=== PATIENT | female | born 1970 | race Caucasian/White ===

== ENCOUNTER 2025-05-17 18:53 | Inpatient (IN) | payer SELFPAY ==
[2025-05-17] VITALS (42 sets, daily range): BP systolic 111–148; BP diastolic 68–93; PULSE 56–90; RESP 12–20; TEMP 36.7–37.1; O2SAT 94–99
--- NOTE | 2025-05-17 18:58 | W.ED.GENAD ---
Discharge Plan Disposition Patient Disposition: Admit to [facility] Condition: Stable Discharge Details Clinical Impression: Alcohol withdrawal ED Provider: Gabo Almanzar Home Meds and New Rx's Prescriptions: No Action No Known Home Meds HPI General Date/Time Provider Initiated Documentation: 05/17/25 18:58. HPI Narrative: 54 year-old female presents to ED today by EMS with a chief complaint of alcohol withdrawal, black stools, tremors with onset after her last drink this morning around 1000. Patient endorses history of alcohol withdrawal seizures, drinks 40+ tall natty daddy's per day. Quality described as exquisite abdominal pain, shaking, nausea, black stools, feels weak, no radiation to falls or trauma, fever, cough, chest heaviness, visual changes. Severity is described as severe. Palliating factors include nothing attempted yet. Provoking factors include nothing specific. Events leading up to the incident/Associated Symptoms: Patient has had prior admissions for ETOH withdrawal. Patient not anticoagulated. Related Data Home Medications Medication Instructions Recorded Confirmed Unknown [No Known Home Meds] 05/17/25 05/17/25 Allergies Allergy/AdvReac Type Severity Reaction Status Date / Time No Known Allergies Allergy Unverified 05/17/25 18:57 General Stated Complaint: ETOHWithdr AYSE: 3 Review of Systems All systems reviewed & are unremarkable except as noted in HPI and below Exam Narrative Exam Narrative: GENERAL APPEARANCE: Cachectic, non-toxic, awake and alert, atraumatic, no acute distress. SKIN: Warm, pale, dry, intact, without rashes/lesions/ulcerations. HEAD: Normocephalic, atraumatic, normal hair distribution for gender/age. EYES: Normal conjunctiva, no exudates on lids/lashes. ENT: Nares patent, no circumoral cyanosis, no facial swelling NECK: Supple, trachea midline, painless cervical ROM. LUNGS/CHEST: Lungs CTA bilaterally- no rhonchi/rales/wheezes diffusely, non-labored respirations, normal A/P diameter, symmetrical expansion, no chest wall deformity HEART (CV/PV): Regular rate and rhythm without murmur, no peripheral edema, no JVD. ABDOMEN: Soft, non-distended, no guarding, exquisite epigastric tenderness. MSK: Normal ROM, no swelling/deformity to bilateral UEs or LEs, moving all extremities without weakness, no cyanosis, spine midline without tenderness, normal curvature. NEURO: Mental Status AAOx4 - alert to person, place, time, events No facial droop, no forehead involvement. Motor: No focal weakness - has tremor persistently on arrival, asterixis, tongue fasciculations Sensory: sensation intact to light touch globally. Gait NT. PSYCH: dysthymic, cooperative, pleasant, appropriate speech Course Vital Signs Vital signs: Vital Signs Temperature 36.7 C 05/17/25 18:49 Pulse 69 05/17/25 18:49 Respiratory Rate 18 05/17/25 18:49 Pulse Oximetry 97 05/17/25 18:49 Temperature 36.7 C 05/17/25 18:49 Temperature Source Oral 05/17/25 18:49 Pulse 69 05/17/25 18:49 Respiratory Rate 18 05/17/25 18:49 Pulse Oximetry 97 05/17/25 18:49 Pain Level 7 05/17/25 18:49 Medical Decision Making This dictation utilizes [id number] dictation software and may contain unedited grammatical errors. 54 year-old female presents to ED today by EMS with a chief complaint of alcohol withdrawal, black stools, tremors with onset after her last drink this morning around 1000. Patient endorses history of alcohol withdrawal seizures, drinks 40+ tall natty daddy's per day. Quality described as exquisite abdominal pain, shaking, nausea, black stools, feels weak, no radiation to falls or trauma, fever, cough, chest heaviness, visual changes. Severity is described as severe. Palliating factors include nothing attempted yet. Provoking factors include nothing specific. Events leading up to the incident/Associated Symptoms: Patient has had prior admissions for ETOH withdrawal. Patients' medical history: [ ]. Family and social history: severe alcohol use disorder, 40+ high precentage tall cans of beer per day, denies other drug use, endorses regular tobacco use. Pertinent exam findings / vital signs include severe tremor, tongue fasciculations, exquisite epigastric tenderness, lungs CTA, EOMs intact without nystagmus. Differential / pathologies of concern include pancreatitis, biliary colic, GI bleeding, severe alcohol withdrawal. Diagnostic studies of: - CBC, BMP, liver panel, lipase, magnesium, troponin, TSH, alcohol level, UA, UDS, ammonia level, alcohol level. - CBC shows leukopenia 2.48, no left shift - Lactate 1.1 - BMP is fairly unremarkable with mildly low calcium - Magnesium within normal limits - LFTs only show mild elevation of AST at 51 - Lipase within normal limits - TSH WNL - Alcohol level 10.1 - Troponin negative - UA small leukocyte esterase, micro only 3-5 WBCs no Cx indicated - UDS negative - Ammonia level within normal limits - CTA of the abdomen pelvis shows no acute pathology in ABD/pelvis - CIWA initial score: 9 - patient likely to become quite severe Interventions of: -2mg Ativan q2hr PRN, IVF Banana Bag, Phenobarbitol drip. -Consult with hospitalist Dr. Adams - admit for ETOH withdrawal plan on lower dose phenobarbital drip at 2133. ED Course/Assessment/Plan: 54-year-old female presents shaking and alcohol withdrawal last drink at 10 AM this morning with an alcohol level 10.1 states he drinks 40 tall beers per day sometimes and had a few today. Her labs show no anemia in regards to her black stools and CTA of her abdomen and pelvis showed no GI hemorrhage, troponins negative, LFTs only mild elevation of AST at 51, her initial CIWA was 9 but patient has history of alcohol induced withdrawal seizures, admitted for observation by Dr. Adams with phenobarbital drip for seizure prevention. Disposition of Alcohol Withdrawal. Patient verbalized understanding of the plan and return to ED criteria and engaged in shared decision making. Medical Records Medical records reviewed: Yes I reviewed the patient's medical records. Imaging Data Radiologic Study: Attestation: I personally reviewed and interpreted this imaging study as follows: Imaging: CT Scan Radiologist's impression: Exam: CTA Abdomen and Pelvis With Contrast Exam date and time: 05/17/2025 8:35 PM Age: 54 years old Clinical indication: Other: ? Gi bleeding TECHNIQUE: Imaging protocol: Computed tomographic angiography of the abdomen and pelvis with contrast. Exam focused on the arteries. 3D rendering (Not supervised by radiologist): MIP and/or 3D reconstructed images were created by the technologist. Contrast material: OMNIPAQUE 350; Contrast volume: 65 ml; Contrast route: INTRAVENOUS (IV); COMPARISON: No relevant prior studies available. FINDINGS: Lungs: Small calcified right lung base granuloma. Aorta: No aortic aneurysm. No aortic dissection. Celiac and mesenteric arteries: No occlusion or significant stenosis. Renal arteries: No occlusion or significant stenosis. Right iliac arteries: No occlusion or significant stenosis. Left iliac arteries: No occlusion or significant stenosis. Liver: No mass. Gallbladder and biliary ducts: Status post cholecystectomy. Pancreas: Unremarkable. No mass. No ductal dilation. Spleen: Unremarkable. No splenomegaly. Adrenal glands: Unremarkable. No mass. Kidneys and ureters: Unremarkable. No solid mass. No hydronephrosis. Stomach and bowel: Status post gastric bypass surgery. Appendix: No evidence of appendicitis. Intraperitoneal space: Unremarkable. No free air. No significant fluid collection. Lymph nodes: Unremarkable. No enlarged lymph nodes. Urinary bladder: Unremarkable. No mass. Reproductive: Unremarkable as visualized. Bones/joints: Old right rib fracture. Soft tissues: Unremarkable. IMPRESSION: No evidence for GI hemorrhage. No acute abnormality noted. Dictated and Authenticated by: Shelley Menezes MD. Lab Data Lab results reviewed: Yes I reviewed the patient's lab results. Labs: Laboratory Tests Range/Units 05/17/25 05/17/25 05/17/25 19:04 19:22 19:22 WBC (4.4-10.8) 10^3/uL 2.48 L RBC (3.93-5.22) 10^6/uL 3.82 L Hgb (11.2-15.7) g/dL 11.5 Hct (36.0-46.0) % 34.2 L MCV (80-95) fL 90 MCH (27.0-33.0) pg 30.1 MCHC (32.0-36.0) % 33.6 RDW (11.7-14.6) % 14.1 Plt Count (130-400) 10^3/uL 137 MPV (8.0-11.0) fL 8.9 Immature Gran % % 0.4 Neutrophils % % 55.2 Lymphocytes % % 33.5 Monocytes % % 8.9 Eosinophils % % 1.2 Basophils % % 0.8 Nucleated RBC % (0.0-0.3) % 0.0 Absolute Neutrophils (1.2-6.7) 10^3/uL 1.37 Absolute Lymphocytes (1.2-3.4) 10^3/uL 0.83 L Absolute Monocytes (0.1-0.8) 10^3/uL 0.22 Absolute Eosinophils (0.0-0.7) 10^3/uL 0.03 Absolute Basophils (0.0-0.2) 10^3/uL 0.02 VBG Lactate (<or=2.0) mmol/L 1.1 Sodium (136-145) mmol/L 143 Cancelled Potassium (3.5-5.1) mmol/L 4.2 Chloride (98-107) mmol/L Carbon Dioxide (21.0-32.0) mmol/L Anion Gap (3-11) mmol/L BUN (7-18) mg/dL Creatinine (0.55-1.02) mg/dL Est GFR (CKD-EPI 2020) (mL/min/1.73m2) Glucose (74-106) mg/dL Calcium (8.5-10.1) mg/dL Magnesium (1.8-2.4) mg/dL Total Bilirubin (0.2-1.0) mg/dL Conjugated Bilirubin (0.0-0.2) mg/dL AST (15-37) U/L ALT (14-59) U/L Alkaline Phosphatase (46-116) U/L Ammonia (11-32) umol/L Troponin I (<or=51) ng/L Total Protein (6.4-8.2) g/dL Albumin (3.4-5.0) g/dL Lipase (<78) U/L TSH (0.36-3.74) uIU/mL Urine Color (Yellow) Yellow Urine Clarity (Clear) Clear Urine pH (5-8) 5.5 Ur Specific [place] (1.005-1.025) 1.025 Urine Protein (Neg-Trace) mg/dL Negative Urine Ketones (Negative) mg/dL Negative Urine Blood (Negative) Negative Urine Nitrite (Negative) Negative Urine Bilirubin (Negative) Negative Urine Urobilinogen (Up to 0.2) mg/dL 0.2 Ur Leukocyte Esterase (Negative) Small H Urine RBC (0-2) HPF 0-2 Urine WBC (0-5) HPF 3-5 Ur Epithelial Cells (Negative) HPF Rare Urine Crystals (Negative) HPF Negative Urine Bacteria (Negative) HPF Negative Urine Mucus (Negative) Trace Ur Culture Indicated? No Urine Glucose (Negative) mg/dL Negative Urine Opiates Screen (Negative) Negative Urine Methadone Screen (Negative) Negative Ur Barbiturates Screen (Negative) Negative Ur Tricyclics Screen (Negative) Negative Ur Amphetamines Screen (Negative) Negative U Benzodiazepines Scrn (Negative) Negative Urine Cocaine Screen (Negative) Negative Ur THC Screen (Negative) Negative Ethyl Alcohol (<10) mg/dL Range/Units 05/17/25 05/17/25 05/17/25 19:22 19:22 19:22 WBC (4.4-10.8) 10^3/uL RBC (3.93-5.22) 10^6/uL Hgb (11.2-15.7) g/dL Hct (36.0-46.0) % MCV (80-95) fL MCH (27.0-33.0) pg MCHC (32.0-36.0) % RDW (11.7-14.6) % Plt Count (130-400) 10^3/uL MPV (8.0-11.0) fL Immature Gran % % Neutrophils % % Lymphocytes % % Monocytes % % Eosinophils % % Basophils % % Nucleated RBC % (0.0-0.3) % Absolute Neutrophils (1.2-6.7) 10^3/uL Absolute Lymphocytes (1.2-3.4) 10^3/uL Absolute Monocytes (0.1-0.8) 10^3/uL Absolute Eosinophils (0.0-0.7) 10^3/uL Absolute Basophils (0.0-0.2) 10^3/uL VBG Lactate (<or=2.0) mmol/L Sodium (136-145) mmol/L Potassium (3.5-5.1) mmol/L Cancelled Chloride (98-107) mmol/L 106 Cancelled Carbon Dioxide (21.0-32.0) mmol/L 26.9 Cancelled Anion Gap (3-11) mmol/L 10.1 BUN (7-18) mg/dL Creatinine (0.55-1.02) mg/dL Est GFR (CKD-EPI 2020) (mL/min/1.73m2) Glucose (74-106) mg/dL Calcium (8.5-10.1) mg/dL Magnesium (1.8-2.4) mg/dL Total Bilirubin (0.2-1.0) mg/dL Conjugated Bilirubin (0.0-0.2) mg/dL AST (15-37) U/L ALT (14-59) U/L Alkaline Phosphatase (46-116) U/L Ammonia (11-32) umol/L Troponin I (<or=51) ng/L Total Protein (6.4-8.2) g/dL Albumin (3.4-5.0) g/dL Lipase (<78) U/L TSH (0.36-3.74) uIU/mL Urine Color (Yellow) Urine Clarity (Clear) Urine pH (5-8) Ur Specific [place] (1.005-1.025) Urine Protein (Neg-Trace) mg/dL Urine Ketones (Negative) mg/dL Urine Blood (Negative) Urine Nitrite (Negative) Urine Bilirubin (Negative) Urine Urobilinogen (Up to 0.2) mg/dL Ur Leukocyte Esterase (Negative) Urine RBC (0-2) HPF Urine WBC (0-5) HPF Ur Epithelial Cells (Negative) HPF Urine Crystals (Negative) HPF Urine Bacteria (Negative) HPF Urine Mucus (Negative) Ur Culture Indicated? Urine Glucose (Negative) mg/dL Urine Opiates Screen (Negative) Urine Methadone Screen (Negative) Ur Barbiturates Screen (Negative) Ur Tricyclics Screen (Negative) Ur Amphetamines Screen (Negative) U Benzodiazepines Scrn (Negative) Urine Cocaine Screen (Negative) Ur THC Screen (Negative) Ethyl Alcohol (<10) mg/dL Range/Units 05/17/25 05/17/25 05/17/25 19:22 19:22 19:22 WBC (4.4-10.8) 10^3/uL RBC (3.93-5.22) 10^6/uL Hgb (11.2-15.7) g/dL Hct (36.0-46.0) % MCV (80-95) fL MCH (27.0-33.0) pg MCHC (32.0-36.0) % RDW (11.7-14.6) % Plt Count (130-400) 10^3/uL MPV (8.0-11.0) fL Immature Gran % % Neutrophils % % Lymphocytes % % Monocytes % % Eosinophils % % Basophils % % Nucleated RBC % (0.0-0.3) % Absolute Neutrophils (1.2-6.7) 10^3/uL Absolute Lymphocytes (1.2-3.4) 10^3/uL Absolute Monocytes (0.1-0.8) 10^3/uL Absolute Eosinophils (0.0-0.7) 10^3/uL Absolute Basophils (0.0-0.2) 10^3/uL VBG Lactate (<or=2.0) mmol/L Sodium (136-145) mmol/L Potassium (3.5-5.1) mmol/L Chloride (98-107) mmol/L Carbon Dioxide (21.0-32.0) mmol/L Anion Gap (3-11) mmol/L Cancelled BUN (7-18) mg/dL 9 Cancelled Creatinine (0.55-1.02) mg/dL 0.6 Cancelled Est GFR (CKD-EPI 2020) (mL/min/1.73m2) 105.94 Glucose (74-106) mg/dL Calcium (8.5-10.1) mg/dL Magnesium (1.8-2.4) mg/dL Total Bilirubin (0.2-1.0) mg/dL Conjugated Bilirubin (0.0-0.2) mg/dL AST (15-37) U/L ALT (14-59) U/L Alkaline Phosphatase (46-116) U/L Ammonia (11-32) umol/L Troponin I (<or=51) ng/L Total Protein (6.4-8.2) g/dL Albumin (3.4-5.0) g/dL Lipase (<78) U/L TSH (0.36-3.74) uIU/mL Urine Color (Yellow) Urine Clarity (Clear) Urine pH (5-8) Ur Specific [place] (1.005-1.025) Urine Protein (Neg-Trace) mg/dL Urine Ketones (Negative) mg/dL Urine Blood (Negative) Urine Nitrite (Negative) Urine Bilirubin (Negative) Urine Urobilinogen (Up to 0.2) mg/dL Ur Leukocyte Esterase (Negative) Urine RBC (0-2) HPF Urine WBC (0-5) HPF Ur Epithelial Cells (Negative) HPF Urine Crystals (Negative) HPF Urine Bacteria (Negative) HPF Urine Mucus (Negative) Ur Culture Indicated? Urine Glucose (Negative) mg/dL Urine Opiates Screen (Negative) Urine Methadone Screen (Negative) Ur Barbiturates Screen (Negative) Ur Tricyclics Screen (Negative) Ur Amphetamines Screen (Negative) U Benzodiazepines Scrn (Negative) Urine Cocaine Screen (Negative) Ur THC Screen (Negative) Ethyl Alcohol (<10) mg/dL Range/Units 05/17/25 05/17/25 05/17/25 19:22 19:22 19:22 WBC (4.4-10.8) 10^3/uL RBC (3.93-5.22) 10^6/uL Hgb (11.2-15.7) g/dL Hct (36.0-46.0) % MCV (80-95) fL MCH (27.0-33.0) pg MCHC (32.0-36.0) % RDW (11.7-14.6) % Plt Count (130-400) 10^3/uL MPV (8.0-11.0) fL Immature Gran % % Neutrophils % % Lymphocytes % % Monocytes % % Eosinophils % % Basophils % % Nucleated RBC % (0.0-0.3) % Absolute Neutrophils (1.2-6.7) 10^3/uL Absolute Lymphocytes (1.2-3.4) 10^3/uL Absolute Monocytes (0.1-0.8) 10^3/uL Absolute Eosinophils (0.0-0.7) 10^3/uL Absolute Basophils (0.0-0.2) 10^3/uL VBG Lactate (<or=2.0) mmol/L Sodium (136-145) mmol/L Potassium (3.5-5.1) mmol/L Chloride (98-107) mmol/L Carbon Dioxide (21.0-32.0) mmol/L Anion Gap (3-11) mmol/L BUN (7-18) mg/dL Creatinine (0.55-1.02) mg/dL Est GFR (CKD-EPI 2020) (mL/min/1.73m2) Cancelled Glucose (74-106) mg/dL 89 Cancelled Calcium (8.5-10.1) mg/dL 8.2 L Cancelled Magnesium (1.8-2.4) mg/dL 2.1 Total Bilirubin (0.2-1.0) mg/dL 0.3 Conjugated Bilirubin (0.0-0.2) mg/dL AST (15-37) U/L ALT (14-59) U/L Alkaline Phosphatase (46-116) U/L Ammonia (11-32) umol/L Troponin I (<or=51) ng/L Total Protein (6.4-8.2) g/dL Albumin (3.4-5.0) g/dL Lipase (<78) U/L TSH (0.36-3.74) uIU/mL Urine Color (Yellow) Urine Clarity (Clear) Urine pH (5-8) Ur Specific [place] (1.005-1.025) Urine Protein (Neg-Trace) mg/dL Urine Ketones (Negative) mg/dL Urine Blood (Negative) Urine Nitrite (Negative) Urine Bilirubin (Negative) Urine Urobilinogen (Up to 0.2) mg/dL Ur Leukocyte Esterase (Negative) Urine RBC (0-2) HPF Urine WBC (0-5) HPF Ur Epithelial Cells (Negative) HPF Urine Crystals (Negative) HPF Urine Bacteria (Negative) HPF Urine Mucus (Negative) Ur Culture Indicated? Urine Glucose (Negative) mg/dL Urine Opiates Screen (Negative) Urine Methadone Screen (Negative) Ur Barbiturates Screen (Negative) Ur Tricyclics Screen (Negative) Ur Amphetamines Screen (Negative) U Benzodiazepines Scrn (Negative) Urine Cocaine Screen (Negative) Ur THC Screen (Negative) Ethyl Alcohol (<10) mg/dL Range/Units 05/17/25 05/17/25 05/17/25 19:22 19:22 19:22 WBC (4.4-10.8) 10^3/uL RBC (3.93-5.22) 10^6/uL Hgb (11.2-15.7) g/dL Hct (36.0-46.0) % MCV (80-95) fL MCH (27.0-33.0) pg MCHC (32.0-36.0) % RDW (11.7-14.6) % Plt Count (130-400) 10^3/uL MPV (8.0-11.0) fL Immature Gran % % Neutrophils % % Lymphocytes % % Monocytes % % Eosinophils % % Basophils % % Nucleated RBC % (0.0-0.3) % Absolute Neutrophils (1.2-6.7) 10^3/uL Absolute Lymphocytes (1.2-3.4) 10^3/uL Absolute Monocytes (0.1-0.8) 10^3/uL Absolute Eosinophils (0.0-0.7) 10^3/uL Absolute Basophils (0.0-0.2) 10^3/uL VBG Lactate (<or=2.0) mmol/L Sodium (136-145) mmol/L Potassium (3.5-5.1) mmol/L Chloride (98-107) mmol/L Carbon Dioxide (21.0-32.0) mmol/L Anion Gap (3-11) mmol/L BUN (7-18) mg/dL Creatinine (0.55-1.02) mg/dL Est GFR (CKD-EPI 2020) (mL/min/1.73m2) Glucose (74-106) mg/dL Calcium (8.5-10.1) mg/dL Magnesium (1.8-2.4) mg/dL Total Bilirubin (0.2-1.0) mg/dL Cancelled Conjugated Bilirubin (0.0-0.2) mg/dL 0.1 AST (15-37) U/L 51 H Cancelled ALT (14-59) U/L 56 Cancelled Alkaline Phosphatase (46-116) U/L 114 Ammonia (11-32) umol/L Troponin I (<or=51) ng/L Total Protein (6.4-8.2) g/dL Albumin (3.4-5.0) g/dL Lipase (<78) U/L TSH (0.36-3.74) uIU/mL Urine Color (Yellow) Urine Clarity (Clear) Urine pH (5-8) Ur Specific [place] (1.005-1.025) Urine Protein (Neg-Trace) mg/dL Urine Ketones (Negative) mg/dL Urine Blood (Negative) Urine Nitrite (Negative) Urine Bilirubin (Negative) Urine Urobilinogen (Up to 0.2) mg/dL Ur Leukocyte Esterase (Negative) Urine RBC (0-2) HPF Urine WBC (0-5) HPF Ur Epithelial Cells (Negative) HPF Urine Crystals (Negative) HPF Urine Bacteria (Negative) HPF Urine Mucus (Negative) Ur Culture Indicated? Urine Glucose (Negative) mg/dL Urine Opiates Screen (Negative) Urine Methadone Screen (Negative) Ur Barbiturates Screen (Negative) Ur Tricyclics Screen (Negative) Ur Amphetamines Screen (Negative) U Benzodiazepines Scrn (Negative) Urine Cocaine Screen (Negative) Ur THC Screen (Negative) Ethyl Alcohol (<10) mg/dL Range/Units 05/17/25 05/17/25 05/17/25 19:22 19:22 19:22 WBC (4.4-10.8) 10^3/uL RBC (3.93-5.22) 10^6/uL Hgb (11.2-15.7) g/dL Hct (36.0-46.0) % MCV (80-95) fL MCH (27.0-33.0) pg MCHC (32.0-36.0) % RDW (11.7-14.6) % Plt Count (130-400) 10^3/uL MPV (8.0-11.0) fL Immature Gran % % Neutrophils % % Lymphocytes % % Monocytes % % Eosinophils % % Basophils % % Nucleated RBC % (0.0-0.3) % Absolute Neutrophils (1.2-6.7) 10^3/uL Absolute Lymphocytes (1.2-3.4) 10^3/uL Absolute Monocytes (0.1-0.8) 10^3/uL Absolute Eosinophils (0.0-0.7) 10^3/uL Absolute Basophils (0.0-0.2) 10^3/uL VBG Lactate (<or=2.0) mmol/L Sodium (136-145) mmol/L Potassium (3.5-5.1) mmol/L Chloride (98-107) mmol/L Carbon Dioxide (21.0-32.0) mmol/L Anion Gap (3-11) mmol/L BUN (7-18) mg/dL Creatinine (0.55-1.02) mg/dL Est GFR (CKD-EPI 2020) (mL/min/1.73m2) Glucose (74-106) mg/dL Calcium (8.5-10.1) mg/dL Magnesium (1.8-2.4) mg/dL Total Bilirubin (0.2-1.0) mg/dL Conjugated Bilirubin (0.0-0.2) mg/dL AST (15-37) U/L ALT (14-59) U/L Alkaline Phosphatase (46-116) U/L Cancelled Ammonia (11-32) umol/L 12 Troponin I (<or=51) ng/L 6 Cancelled Total Protein (6.4-8.2) g/dL 6.7 Cancelled Albumin (3.4-5.0) g/dL 2.9 L Lipase (<78) U/L TSH (0.36-3.74) uIU/mL Urine Color (Yellow) Urine Clarity (Clear) Urine pH (5-8) Ur Specific [place] (1.005-1.025) Urine Protein (Neg-Trace) mg/dL Urine Ketones (Negative) mg/dL Urine Blood (Negative) Urine Nitrite (Negative) Urine Bilirubin (Negative) Urine Urobilinogen (Up to 0.2) mg/dL Ur Leukocyte Esterase (Negative) Urine RBC (0-2) HPF Urine WBC (0-5) HPF Ur Epithelial Cells (Negative) HPF Urine Crystals (Negative) HPF Urine Bacteria (Negative) HPF Urine Mucus (Negative) Ur Culture Indicated? Urine Glucose (Negative) mg/dL Urine Opiates Screen (Negative) Urine Methadone Screen (Negative) Ur Barbiturates Screen (Negative) Ur Tricyclics Screen (Negative) Ur Amphetamines Screen (Negative) U Benzodiazepines Scrn (Negative) Urine Cocaine Screen (Negative) Ur THC Screen (Negative) Ethyl Alcohol (<10) mg/dL Range/Units 05/17/25 05/17/25 19:22 20:25 WBC (4.4-10.8) 10^3/uL RBC (3.93-5.22) 10^6/uL Hgb (11.2-15.7) g/dL Hct (36.0-46.0) % MCV (80-95) fL MCH (27.0-33.0) pg MCHC (32.0-36.0) % RDW (11.7-14.6) % Plt Count (130-400) 10^3/uL MPV (8.0-11.0) fL Immature Gran % % Neutrophils % % Lymphocytes % % Monocytes % % Eosinophils % % Basophils % % Nucleated RBC % (0.0-0.3) % Absolute Neutrophils (1.2-6.7) 10^3/uL Absolute Lymphocytes (1.2-3.4) 10^3/uL Absolute Monocytes (0.1-0.8) 10^3/uL Absolute Eosinophils (0.0-0.7) 10^3/uL Absolute Basophils (0.0-0.2) 10^3/uL VBG Lactate (<or=2.0) mmol/L Sodium (136-145) mmol/L Potassium (3.5-5.1) mmol/L Chloride (98-107) mmol/L Carbon Dioxide (21.0-32.0) mmol/L Anion Gap (3-11) mmol/L BUN (7-18) mg/dL Creatinine (0.55-1.02) mg/dL Est GFR (CKD-EPI 2020) (mL/min/1.73m2) Glucose (74-106) mg/dL Calcium (8.5-10.1) mg/dL Magnesium (1.8-2.4) mg/dL Total Bilirubin (0.2-1.0) mg/dL Conjugated Bilirubin (0.0-0.2) mg/dL AST (15-37) U/L ALT (14-59) U/L Alkaline Phosphatase (46-116) U/L Ammonia (11-32) umol/L Troponin I (<or=51) ng/L 7 Total Protein (6.4-8.2) g/dL Albumin (3.4-5.0) g/dL Cancelled Lipase (<78) U/L 63 TSH (0.36-3.74) uIU/mL 0.99 Urine Color (Yellow) Urine Clarity (Clear) Urine pH (5-8) Ur Specific [place] (1.005-1.025) Urine Protein (Neg-Trace) mg/dL Urine Ketones (Negative) mg/dL Urine Blood (Negative) Urine Nitrite (Negative) Urine Bilirubin (Negative) Urine Urobilinogen (Up to 0.2) mg/dL Ur Leukocyte Esterase (Negative) Urine RBC (0-2) HPF Urine WBC (0-5) HPF Ur Epithelial Cells (Negative) HPF Urine Crystals (Negative) HPF Urine Bacteria (Negative) HPF Urine Mucus (Negative) Ur Culture Indicated? Urine Glucose (Negative) mg/dL Urine Opiates Screen (Negative) Urine Methadone Screen (Negative) Ur Barbiturates Screen (Negative) Ur Tricyclics Screen (Negative) Ur Amphetamines Screen (Negative) U Benzodiazepines Scrn (Negative) Urine Cocaine Screen (Negative) Ur THC Screen (Negative) Ethyl Alcohol (<10) mg/dL 10.1 H PFSH All Active Problems (Updated 05/17/25 @ 21:22 by PAULIE Benjamin) Alcohol withdrawal (Acute) Social History Smoking/Tobacco Use Status: Current every day Tobacco Type: cigarettes Smoking risk assessment performed?: Yes Drug use: Never Substance use type: does not use Housing: [facility] Have you Been Recently Intoxicated or Drunk Within the Last 30 days?: Yes Have you Ever Experienced Previous Episodes of Alcohol Withdrawal?: Yes Have you ever Experienced Withdrawal Seizures?: Yes Have you ever Experienced Delirium Tremens(DT)s?: Yes Have you ever undergone Alcohol Rehabilitation Treatment (i.e, inpt ot outpatient treatment programs)?: Yes Have you ever Experienced Blackouts?: Yes Have you ever Combined Alcohol with other Downers within the last 90 days?: No Have you ever Combined Alcohol with any other Substance of Abuse during the last 90 days?: No Positive Blood Alcohol level on Presentation? [PCS.BAL]: Yes Evidence of Increased Autonomic Activity (i.e. HR>120, tremor, sweating, agitation, nausea)?: Yes Result: 8
[2025-05-17 19:33] LABS: Abs Immature Grans 0.01 10^3/uL (0.0-0.06); HCT 34.2 % (36.0-46.0); HGB 11.5 g/dL (11.2-15.7); Immature Grans % 0.4 %; MCH 30.1 pg (27.0-33.0); MCHC 33.6 % (32.0-36.0); MCV 90 fL (80-95); MPV 8.9 fL (8.0-11.0); Platelet Count 137 10^3/uL (130-400); RBC 3.82 10^6/uL (3.93-5.22); RDW 14.1 % (11.7-14.6); RDW-SD 46.1 fL; WBC 2.48 10^3/uL (4.4-10.8)
[2025-05-17 19:45] LABS: Ammonia 12 umol/L (11-32)
[2025-05-17] MEDS: LORazepam 20 MG/10 ML VIAL IVP ×2 (19:57→22:40)
[2025-05-17] MEDS: MAGNESIUM SULFATE 8.12 MEQ, MULTIVITAMIN 10 ML, THIAMINE 100 MG, FOLIC ACID 1 MG in Nor... 168.867 MG IV (19:57)
--- NOTE | 2025-05-17 20:04 | DI.CT_ITS ---
Exam(s) CT ABDOMEN PELVIS CTA EXAM: CT ABDOMEN PELVIS CTA CLINICAL HISTORY: ? GI bleeding. TECHNIQUE: Imaging Protocol: Axial CT angiography was performed with multi- slice acquisition and multi-planar and/or 3D reconstructions. CONTRAST MATERIAL: Intravenous: Omnipaque 350 Contrast volume:65mL Oral: No COMPARISON: No exams were available for comparison FINDINGS: The examination is limited due to patient motion artifact. ABDOMEN AND PELVIS: Abdomen: Celiac axis/mesenteric arteries: No evidence of occlusion or significant stenosis. Renal Arteries: No evidence of occlusion or significant stenosis. Aorta: No evidence of occlusion or significant stenosis. No aneurysm or dissection. Pelvis: Iliac Arteries: No evidence of occlusion or significant stenosis. Common Femoral Arteries: No evidence of occlusion or significant stenosis. ABDOMEN: Lung bases: Unremarkable. Liver: Normal density. No measurable mass. Portal, Superior Mesenteric, and Splenic Veins: Unremarkable. Gallbladder and Biliary Tract: The gallbladder is not visualized. There is no significant biliary ductal dilatation. Pancreas: Normal density, no abnormal calcifications or inflammatory process. Spleen: Normal. Adrenals: No masses seen. Kidneys: Normal size, contour and axis. No radiodense stones or obstructive uropathy. There is a simple cyst in the right kidney. No follow-up is recommended. Bowel: No obstruction or bowel wall thickening. There is no evidence of appendicitis. There are findings suggesting prior gastric bypass surgery. Peritoneal Cavity: No ascites, collection or mesenteric inflammatory response. No free air. Lymph Nodes: Within normal limits. Bones: Within normal limits for the patient's age. Soft Tissues: Unremarkable. PELVIS: Bladder: Symmetric distention, no gross wall thickening. Reproductive Organs: Unremarkable as visualized. Lymph Nodes: Within normal limits. Bones: Within normal limits. IMPRESSION: 1. No evidence of abdominal aortic dissection or aneurysm. 2. No evidence of active gastrointestinal bleeding. 3. There is no acute abdominal or pelvic process. 4. The preliminary [facility] report was reviewed. RADIATION DOSE DELIVERED: 1,109.86mGy.cm Total DLP DATA REPOSITORY: All CT scans at this facility are submitted to the National Radiology Data Registry (NRDR) Dose Index Registry (DIR) with the [employer] (A[employer]). RADIATION OPTIMIZATION: All CT scans at this facility use at least one of these dose optimization techniques: automated exposure control; mA and/or kV adjustment per patient size (includes targeted exams where dose is matched to clinical indication); or iterative reconstruction.
[2025-05-17 20:08] LABS: ALT 56 U/L (14-59); AST 51 U/L (15-37); Albumin 2.9 g/dL (3.4-5.0); Alkaline Phosphatase 114 U/L (46-116); Anion Gap 10.1 mmol/L (3-11); BUN 9 mg/dL (7-18); Bilirubin, Direct 0.1 mg/dL (0.0-0.2); Bilirubin, Total 0.3 mg/dL (0.2-1.0); CO2 26.9 mmol/L (21.0-32.0); Calcium 8.2 mg/dL (8.5-10.1); Chloride 106 mmol/L (98-107); Glucose 89 mg/dL (74-106); Lipase 63 U/L (<78); Magnesium 2.1 mg/dL (1.8-2.4); Potassium 4.2 mmol/L (3.5-5.1); Sodium 143 mmol/L (136-145); Total Protein 6.7 g/dL (6.4-8.2); Troponin I 6 ng/L (<or=51)
[2025-05-17 20:08] LABS: Glucose Negative (Negative)
[2025-05-17 20:14] LABS: TSH (W/Ref FT4) 0.99 uIU/mL (0.36-3.74)
[2025-05-17 20:16] LABS: C & S Indicated? No; RBC 0-2 HPF (0-2)
[2025-05-17 20:23] LABS: Cannabinoids THC Negative (Negative)
[2025-05-17] MEDS: Normal Saline - Diluent 50 ML VIAL IJ (20:34)
[2025-05-17] MEDS: Normal Saline Flush 10 ML SYR IVP (20:34)
[2025-05-17] MEDS: Omnipaque 350 MG/ML 100 ML BTL IJ (20:35)
[2025-05-17 20:57] LABS: Troponin I 7 ng/L (<or=51)
--- NOTE | 2025-05-17 21:17 | DI.[facility]_ITS ---
PROCEDURE INFORMATION: Exam: CTA Abdomen and Pelvis With Contrast Exam date and time: 05/17/2025 8:35 PM Age: 54 years old Clinical indication: Other: ? Gi bleeding TECHNIQUE: Imaging protocol: Computed tomographic angiography of the abdomen and pelvis with contrast. Exam focused on the arteries. 3D rendering (Not supervised by radiologist): MIP and/or 3D reconstructed images were created by the technologist. Contrast material: OMNIPAQUE 350; Contrast volume: 65 ml; Contrast route: INTRAVENOUS (IV); COMPARISON: No relevant prior studies available. FINDINGS: Lungs: Small calcified right lung base granuloma. Aorta: No aortic aneurysm. No aortic dissection. Celiac and mesenteric arteries: No occlusion or significant stenosis. Renal arteries: No occlusion or significant stenosis. Right iliac arteries: No occlusion or significant stenosis. Left iliac arteries: No occlusion or significant stenosis. Liver: No mass. Gallbladder and biliary ducts: Status post cholecystectomy. Pancreas: Unremarkable. No mass. No ductal dilation. Spleen: Unremarkable. No splenomegaly. Adrenal glands: Unremarkable. No mass. Kidneys and ureters: Unremarkable. No solid mass. No hydronephrosis. Stomach and bowel: Status post gastric bypass surgery. Appendix: No evidence of appendicitis. Intraperitoneal space: Unremarkable. No free air. No significant fluid collection. Lymph nodes: Unremarkable. No enlarged lymph nodes. Urinary bladder: Unremarkable. No mass. Reproductive: Unremarkable as visualized. Bones/joints: Old right rib fracture. Soft tissues: Unremarkable. IMPRESSION: No evidence for GI hemorrhage. No acute abnormality noted. Dictated and Authenticated by: Shelley Menezes MD. Orderin Yohan Ayon MD
--- NOTE | 2025-05-17 21:55 | W.PM.HP.N ---
Date of service: 05/17/25 Time of Service: 21:55 Assessment and Plan Assessment and plan (1) Alcohol withdrawal: Start date: 05/17/25 Status: Acute Assessment and plan: Is a 54-year-old lady who apparently is living alone drinking 40 cans of beer daily now not eating because of abdominal pain and a vague history of colon cancer by colonoscopy in [place] months ago which never had follow-up. She presents with concerns for alcohol withdrawal being intoxicated and stating that they arrested me at the hotel she was staying. It is not documented but the ED provider did state that her travel partner left her at the apartment and went back to [place]. Presentation is for alcohol withdrawal and she will be admitted to ICU for phenobarbital protocol and observation of her melena with serial CBCs for possible acute blood loss. With her history she needs to see surgery for evaluation and plan. She is a full code. (2) Melena: Start date: 05/17/25 Status: Acute Assessment and plan: Patient is acutely having continued melena but this seems to be a history over months where she has had evaluation in [place] without follow-up. Trend CBCs for acute blood loss and transfuse if needed. Lovenox will be held for this reason and low platelet count with her chronic alcohol use. Surgical consultation is in place. (3) Colon cancer: Status: Acute Assessment and plan: This appears to be a new diagnosis though the timing may be difficult to assess without contact with her [place] caregivers. Surgery can follow-up with this and hopefully at least have a plan for workup locally if she cannot travel back to [place]. She is not having signs of obstruction but continued intermittent rectal bleeding and melena. She also has chronic alcohol use with low platelet count and this may be worsening her bleeding potential. PT/INR was normal with normal total bilirubin with only slightly elevated liver function test and no evidence of cirrhosis. (4) Chronic alcoholism: Status: Chronic Assessment and plan: Patient most likely will not stop alcohol use long-term unless she has aggressive inpatient rehabilitation and that she wishes to do this. This is causing some physical health issues. She may be self treating her abdominal pain and social stress which seems chaotic. Her urine drug screen was negative for any other illicit drugs without special testing. PDMP is not available but patient not living in [place] most of the year as it appears. As she recovers from alcohol drawl she should be offered local outpatient or inpatient alcoholism treatment. Case management may be helpful with her chaotic social issues and housing. History of Present Illness History of Present Illness Chief Complaint: Alcohol intoxication over weeks with abdominal pain and melena months Narrative: This is a 54-year-old female patient who lives in [place] most of the year and has been in [place] recently in a hotel by herself without travel back to [place]. She drinks 40 [employer] daily and was having difficulty continued to drink and not eating. She has abdominal pain with a diagnosis of colon cancer made by colonoscopy in [place] this last several months but no follow-up occurred. She was supposed to see a GI specialist. She has had rectal bleeding and melena she is not having bloating or signs of obstruction and denies vomiting. She denies any urinary complaints. Before that colonoscopy and since she is continue with some melena intermittently. She came to the ED for her melena persisting and abdominal pain along with wanting to come off of alcohol. She has gone through alcohol withdrawal in the past and had to be hospitalized. She denies any alcohol withdrawal seizures. She denies any illicit drug use. PDMP is not available on this patient. Patient was admitted to the ICU for close observation for alcohol withdrawal on phenobarbital. She also needs her abdominal pain addressed and will have trending CBCs with surgical consultation for her abdominal pain, presumptive diagnosis of colon cancer though this is only by history and melena. Long-term she may have social issues living on a hotel and apparently not having transportation back to [place]. manager land can work on this. She is a full code. Review of Systems Narrative: 13 point review of systems otherwise unrevealing or stable. Patient is a very poor historian but denies any hematemesis, bloating or emesis and does not state that she has had significant weight loss though she is very thin. PFSH All Active Problems (Updated 05/18/25 @ 06:42 by Jeffry Adams) Chronic alcoholism (Chronic) Colon cancer (Acute) Melena (Acute) Alcohol withdrawal (Acute) Social History Smoking/Tobacco Use Status: Current every day Tobacco Type: cigarettes Smoking risk assessment performed?: Yes Drug use: Never Substance use type: does not use Housing: homeless Meds Allergies and Home Medications Allergies Allergy/AdvReac Type Severity Reaction Status Date / Time No Known Allergies Allergy Unverified 05/17/25 18:57 Home Medications Medication Instructions Recorded Confirmed Type Unknown [No Known Home Meds] 05/17/25 05/17/25 History Exam Narrative Exam Narrative: General: Patient appears older than stated age and very thin but not cachectic, slowed mentation and speech appearing slightly sedated. She wanders in conversation. She is alert and oriented at least to person and place. She is in moderate distress from her abdominal discomfort holding her abdomen during conversation. HEENT: Normocephalic, eyes with pupils equal and reactive light symmetrically, extraocular movement intact and sclera anicteric. Oral mucosa dry with poor dentition. Neck: Supple without JVD. Lungs: Fair aeration and clear to auscultation percussion with no focalizing rales or rhonchi. Heart: Regular rate and rhythm with no murmurs or gallops appreciated. Breast: Exam deferred. Abdomen: Scaphoid contour, soft palpation but some tenderness in the upper abdomen without guarding or rebound. Bowel sounds positive all quadrants. No protuberance or tympany to percussion. Genitalia/rectal: Exam deferred. Extremities: Without clubbing, cyanosis or pitting edema. Muscle wasting diffusely. Peripheral pulses intact. Skin: Pale, warm and dry. Slightly decreased turgor. Neuro: Cranial nerves II through XII gross intact, no focalized motor deficits and no tremor. Psych: Flattened affect with depressed mood. No abnormal thought processes. She is a poor historian with remote history appearing to be intact and recent history vague. She is not having alcohol withdrawal delirium at this time. Results Imaging Imaging Studies: Exam: CTA Abdomen and Pelvis With Contrast Exam date and time: 05/17/2025 8:35 PM Age: 54 years old Clinical indication: Other: ? Gi bleeding COMPARISON: No relevant prior studies available. FINDINGS: Lungs: Small calcified right lung base granuloma. Aorta: No aortic aneurysm. No aortic dissection. Celiac and mesenteric arteries: No occlusion or significant stenosis. Renal arteries: No occlusion or significant stenosis. Right iliac arteries: No occlusion or significant stenosis. Left iliac arteries: No occlusion or significant stenosis. Liver: No mass. Gallbladder and biliary ducts: Status post cholecystectomy. Pancreas: Unremarkable. No mass. No ductal dilation. Spleen: Unremarkable. No splenomegaly. Adrenal glands: Unremarkable. No mass. Kidneys and ureters: Unremarkable. No solid mass. No hydronephrosis. Stomach and bowel: Status post gastric bypass surgery. Appendix: No evidence of appendicitis. Intraperitoneal space: Unremarkable. No free air. No significant fluid collection. Lymph nodes: Unremarkable. No enlarged lymph nodes. Urinary bladder: Unremarkable. No mass. Reproductive: Unremarkable as visualized. Bones/joints: Old right rib fracture. Soft tissues: Unremarkable. IMPRESSION: No evidence for GI hemorrhage. No acute abnormality noted. Labs 05/18/25 05:30 05/18/25 05:30 Labs: Laboratory Results - last 24 hr 05/17/25 05/17/25 05/17/25 19:04 19:22 19:22 WBC 2.48 L RBC 3.82 L Hgb 11.5 Hct 34.2 L MCV 90 MCH 30.1 MCHC 33.6 RDW 14.1 Plt Count 137 MPV 8.9 Immature Gran % 0.4 Neutrophils % 55.2 Lymphocytes % 33.5 Monocytes % 8.9 Eosinophils % 1.2 Basophils % 0.8 Nucleated RBC % 0.0 Absolute Neutrophils 1.37 Absolute Lymphocytes 0.83 L Absolute Monocytes 0.22 Absolute Eosinophils 0.03 Absolute Basophils 0.02 VBG Lactate 1.1 Sodium 143 Cancelled Potassium 4.2 Chloride Carbon Dioxide Anion Gap BUN Creatinine Est GFR (CKD-EPI 2020) Glucose Calcium Magnesium Total Bilirubin Conjugated Bilirubin AST ALT Alkaline Phosphatase Ammonia Troponin I Total Protein Albumin Lipase TSH Urine Color Yellow Urine Clarity Clear Urine pH 5.5 Ur Specific [place] 1.025 Urine Protein Negative Urine Ketones Negative Urine Blood Negative Urine Nitrite Negative Urine Bilirubin Negative Urine Urobilinogen 0.2 Ur Leukocyte Esterase Small H Urine RBC 0-2 Urine WBC 3-5 Ur Epithelial Cells Rare Urine Crystals Negative Urine Bacteria Negative Urine Mucus Trace Ur Culture Indicated? No Urine Glucose Negative Urine Opiates Screen Negative Urine Methadone Screen Negative Ur Barbiturates Screen Negative Ur Tricyclics Screen Negative Ur Amphetamines Screen Negative U Benzodiazepines Scrn Negative Urine Cocaine Screen Negative Ur THC Screen Negative Ethyl Alcohol 05/17/25 05/17/25 05/17/25 19:22 19:22 19:22 WBC RBC Hgb Hct MCV MCH MCHC RDW Plt Count MPV Immature Gran % Neutrophils % Lymphocytes % Monocytes % Eosinophils % Basophils % Nucleated RBC % Absolute Neutrophils Absolute Lymphocytes Absolute Monocytes Absolute Eosinophils Absolute Basophils VBG Lactate Sodium Potassium Cancelled Chloride 106 Cancelled Carbon Dioxide 26.9 Cancelled Anion Gap 10.1 BUN Creatinine Est GFR (CKD-EPI 2020) Glucose Calcium Magnesium Total Bilirubin Conjugated Bilirubin AST ALT Alkaline Phosphatase Ammonia Troponin I Total Protein Albumin Lipase TSH Urine Color Urine Clarity Urine pH Ur Specific [place] Urine Protein Urine Ketones Urine Blood Urine Nitrite Urine Bilirubin Urine Urobilinogen Ur Leukocyte Esterase Urine RBC Urine WBC Ur Epithelial Cells Urine Crystals Urine Bacteria Urine Mucus Ur Culture Indicated? Urine Glucose Urine Opiates Screen Urine Methadone Screen Ur Barbiturates Screen Ur Tricyclics Screen Ur Amphetamines Screen U Benzodiazepines Scrn Urine Cocaine Screen Ur THC Screen Ethyl Alcohol 05/17/25 05/17/25 05/17/25 19:22 19:22 19:22 WBC RBC Hgb Hct MCV MCH MCHC RDW Plt Count MPV Immature Gran % Neutrophils % Lymphocytes % Monocytes % Eosinophils % Basophils % Nucleated RBC % Absolute Neutrophils Absolute Lymphocytes Absolute Monocytes Absolute Eosinophils Absolute Basophils VBG Lactate Sodium Potassium Chloride Carbon Dioxide Anion Gap Cancelled BUN 9 Cancelled Creatinine 0.6 Cancelled Est GFR (CKD-EPI 2020) 105.94 Glucose Calcium Magnesium Total Bilirubin Conjugated Bilirubin AST ALT Alkaline Phosphatase Ammonia Troponin I Total Protein Albumin Lipase TSH Urine Color Urine Clarity Urine pH Ur Specific [place] Urine Protein Urine Ketones Urine Blood Urine Nitrite Urine Bilirubin Urine Urobilinogen Ur Leukocyte Esterase Urine RBC Urine WBC Ur Epithelial Cells Urine Crystals Urine Bacteria Urine Mucus Ur Culture Indicated? Urine Glucose Urine Opiates Screen Urine Methadone Screen Ur Barbiturates Screen Ur Tricyclics Screen Ur Amphetamines Screen U Benzodiazepines Scrn Urine Cocaine Screen Ur THC Screen Ethyl Alcohol 05/17/25 05/17/25 05/17/25 19:22 19:22 19:22 WBC RBC Hgb Hct MCV MCH MCHC RDW Plt Count MPV Immature Gran % Neutrophils % Lymphocytes % Monocytes % Eosinophils % Basophils % Nucleated RBC % Absolute Neutrophils Absolute Lymphocytes Absolute Monocytes Absolute Eosinophils Absolute Basophils VBG Lactate Sodium Potassium Chloride Carbon Dioxide Anion Gap BUN Creatinine Est GFR (CKD-EPI 2020) Cancelled Glucose 89 Cancelled Calcium 8.2 L Cancelled Magnesium 2.1 Total Bilirubin 0.3 Conjugated Bilirubin AST ALT Alkaline Phosphatase Ammonia Troponin I Total Protein Albumin Lipase TSH Urine Color Urine Clarity Urine pH Ur Specific [place] Urine Protein Urine Ketones Urine Blood Urine Nitrite Urine Bilirubin Urine Urobilinogen Ur Leukocyte Esterase Urine RBC Urine WBC Ur Epithelial Cells Urine Crystals Urine Bacteria Urine Mucus Ur Culture Indicated? Urine Glucose Urine Opiates Screen Urine Methadone Screen Ur Barbiturates Screen Ur Tricyclics Screen Ur Amphetamines Screen U Benzodiazepines Scrn Urine Cocaine Screen Ur THC Screen Ethyl Alcohol 05/17/25 05/17/25 05/17/25 19:22 19:22 19:22 WBC RBC Hgb Hct MCV MCH MCHC RDW Plt Count MPV Immature Gran % Neutrophils % Lymphocytes % Monocytes % Eosinophils % Basophils % Nucleated RBC % Absolute Neutrophils Absolute Lymphocytes Absolute Monocytes Absolute Eosinophils Absolute Basophils VBG Lactate Sodium Potassium Chloride Carbon Dioxide Anion Gap BUN Creatinine Est GFR (CKD-EPI 2020) Glucose Calcium Magnesium Total Bilirubin Cancelled Conjugated Bilirubin 0.1 AST 51 H Cancelled ALT 56 Cancelled Alkaline Phosphatase 114 Ammonia Troponin I Total Protein Albumin Lipase TSH Urine Color Urine Clarity Urine pH Ur Specific [place] Urine Protein Urine Ketones Urine Blood Urine Nitrite Urine Bilirubin Urine Urobilinogen Ur Leukocyte Esterase Urine RBC Urine WBC Ur Epithelial Cells Urine Crystals Urine Bacteria Urine Mucus Ur Culture Indicated? Urine Glucose Urine Opiates Screen Urine Methadone Screen Ur Barbiturates Screen Ur Tricyclics Screen Ur Amphetamines Screen U Benzodiazepines Scrn Urine Cocaine Screen Ur THC Screen Ethyl Alcohol 05/17/25 05/17/25 05/17/25 19:22 19:22 19:22 WBC RBC Hgb Hct MCV MCH MCHC RDW Plt Count MPV Immature Gran % Neutrophils % Lymphocytes % Monocytes % Eosinophils % Basophils % Nucleated RBC % Absolute Neutrophils Absolute Lymphocytes Absolute Monocytes Absolute Eosinophils Absolute Basophils VBG Lactate Sodium Potassium Chloride Carbon Dioxide Anion Gap BUN Creatinine Est GFR (CKD-EPI 2020) Glucose Calcium Magnesium Total Bilirubin Conjugated Bilirubin AST ALT Alkaline Phosphatase Cancelled Ammonia 12 Troponin I 6 Cancelled Total Protein 6.7 Cancelled Albumin 2.9 L Lipase TSH Urine Color Urine Clarity Urine pH Ur Specific [place] Urine Protein Urine Ketones Urine Blood Urine Nitrite Urine Bilirubin Urine Urobilinogen Ur Leukocyte Esterase Urine RBC Urine WBC Ur Epithelial Cells Urine Crystals Urine Bacteria Urine Mucus Ur Culture Indicated? Urine Glucose Urine Opiates Screen Urine Methadone Screen Ur Barbiturates Screen Ur Tricyclics Screen Ur Amphetamines Screen U Benzodiazepines Scrn Urine Cocaine Screen Ur THC Screen Ethyl Alcohol 05/17/25 05/17/25 19:22 20:25 WBC RBC Hgb Hct MCV MCH MCHC RDW Plt Count MPV Immature Gran % Neutrophils % Lymphocytes % Monocytes % Eosinophils % Basophils % Nucleated RBC % Absolute Neutrophils Absolute Lymphocytes Absolute Monocytes Absolute Eosinophils Absolute Basophils VBG Lactate Sodium Potassium Chloride Carbon Dioxide Anion Gap BUN Creatinine Est GFR (CKD-EPI 2020) Glucose Calcium Magnesium Total Bilirubin Conjugated Bilirubin AST ALT Alkaline Phosphatase Ammonia Troponin I 7 Total Protein Albumin Cancelled Lipase 63 TSH 0.99 Urine Color Urine Clarity Urine pH Ur Specific [place] Urine Protein Urine Ketones Urine Blood Urine Nitrite Urine Bilirubin Urine Urobilinogen Ur Leukocyte Esterase Urine RBC Urine WBC Ur Epithelial Cells Urine Crystals Urine Bacteria Urine Mucus Ur Culture Indicated? Urine Glucose Urine Opiates Screen Urine Methadone Screen Ur Barbiturates Screen Ur Tricyclics Screen Ur Amphetamines Screen U Benzodiazepines Scrn Urine Cocaine Screen Ur THC Screen Ethyl Alcohol 10.1 H Last Vital Signs Temp 36.7 C 05/17/25 18:49 Pulse 78 05/17/25 21:30 Resp 15 05/17/25 21:30 BP 123/68 05/17/25 21:21 Pulse Ox 97 05/17/25 21:30 PAWSS Have you Been Recently Intoxicated or Drunk Within the Last 30 days?: Yes Have you Ever Experienced Previous Episodes of Alcohol Withdrawal?: Yes Have you ever Experienced Withdrawal Seizures?: Yes Have you ever Experienced Delirium Tremens(DT)s?: Yes Have you ever undergone Alcohol Rehabilitation Treatment (i.e, inpt ot outpatient treatment programs)?: Yes Have you ever Experienced Blackouts?: Yes Have you ever Combined Alcohol with other Downers within the last 90 days?: No Have you ever Combined Alcohol with any other Substance of Abuse during the last 90 days?: No Positive Blood Alcohol level on Presentation? [PCS.BAL]: Yes Evidence of Increased Autonomic Activity (i.e. HR>120, tremor, sweating, agitation, nausea)?: Yes Result: 8 Time Spent Time spent with Patient: >75 minutes Time was spent: preparing to see the patient(eg.review tests), obtaining and/or reviewing separately otained hiistory, ordering medications,tests, procedures, referring, communicating with other health child caregiver private home, indepentently interpreting results, counseling the patient and care coordination
[2025-05-17] MEDS: Ondansetron 4 MG/2 ML VIAL IVP (22:21)
[2025-05-17 23:24] LABS: COVID-19 PCR Negative (Negative); RSV PCR Negative (Negative)
[2025-05-17 23:47] LABS: HCT 32.7 % (36.0-46.0); HGB 10.9 g/dL (11.2-15.7); MCH 30.3 pg (27.0-33.0); MCHC 33.3 % (32.0-36.0); MCV 91 fL (80-95); MPV 9.2 fL (8.0-11.0); Platelet Count 126 10^3/uL (130-400); RBC 3.60 10^6/uL (3.93-5.22); RDW 14.3 % (11.7-14.6); RDW-SD 47.5 fL; WBC 2.35 10^3/uL (4.4-10.8)
[2025-05-18] VITALS (32 sets, daily range): BP systolic 112–144; BP diastolic 69–100; PULSE 53–101; RESP 12–32; TEMP 36.5–37.1; O2SAT 94–100
[2025-05-18] MEDS: PHENobarbital 140 MG in Normal Saline 50 ML 100 MG IVPB (00:17)
[2025-05-18] MEDS: Normal Saline Flush 10 ML SYR IVP ×2 (00:46→08:34)
[2025-05-18] MEDS: Acetaminophen 325 MG TAB 650 MG PO ×2 (02:11→08:41)
[2025-05-18] MEDS: PHENobarbital 130 MG/ML VIAL IVP ×2 (02:15→05:41)
[2025-05-18] MEDS: Normal Saline 1,000 ML 125 ML IV ×2 (03:13→11:21)
[2025-05-18] MEDS: PHENobarbital 110 MG in Normal Saline 50 ML 100 MG IVPB ×2 (03:31→06:45)
[2025-05-18] MEDS: Nicotine 21 MG/24 HR PATCH TD (03:35)
[2025-05-18 05:59] LABS: HCT 32.0 % (36.0-46.0); HGB 10.6 g/dL (11.2-15.7); INR 1.0 (0.9-1.1); MCH 30.4 pg (27.0-33.0); MCHC 33.1 % (32.0-36.0); MCV 92 fL (80-95); MPV 9.1 fL (8.0-11.0); Platelet Count 117 10^3/uL (130-400); Prothrombin Time 10.2 sec (9.1-11.1); RBC 3.49 10^6/uL (3.93-5.22); RDW 14.4 % (11.7-14.6); RDW-SD 48.4 fL
[2025-05-18 06:05] LABS: WBC 1.82 10^3/uL (4.4-10.8)
[2025-05-18 06:17] LABS: ALT 42 U/L (14-59); AST 44 U/L (15-37); Albumin 2.5 g/dL (3.4-5.0); Alkaline Phosphatase 102 U/L (46-116); Anion Gap 6.7 mmol/L (3-11); BUN 9 mg/dL (7-18); Bilirubin, Total 1.0 mg/dL (0.2-1.0); CO2 27.3 mmol/L (21.0-32.0); Calcium 8.1 mg/dL (8.5-10.1); Chloride 106 mmol/L (98-107); Glucose 93 mg/dL (74-106); Magnesium 2.3 mg/dL (1.8-2.4); Potassium 4.1 mmol/L (3.5-5.1); Sodium 140 mmol/L (136-145); Total Protein 5.7 g/dL (6.4-8.2)
[2025-05-18] MEDS: MORPHine 4 MG/ML SYR IVP ×2 (06:51→11:03)
--- NOTE | 2025-05-18 07:45 | RT.EKG_ITS ---
APPROVED REPORT Exam: Resting ECG Reason for Exam: epigastric pain Patient Location: I HR:68 bpm ECG Measurements Heart Rate 68 AXIS VA 137 P 65 QRSd 107 QRS 22 QT 404 T 33 QTc 430 Conclusion Sinus rhythm...normal P axis, V-rate 50- 99 Normal Electrocardiogram
[2025-05-18] MEDS: Thiamine 100 MG TAB PO (08:33)
[2025-05-18] MEDS: Folic Acid 1 MG TAB PO (08:33)
[2025-05-18] MEDS: Multivitamin TAB 1 TAB PO (08:33)
--- NOTE | 2025-05-18 08:39 | W.SURGCON ---
Date of service: 05/18/25 Time of Service: 08:39 Assessment and Plan Assessment and plan (1) Colon cancer: Status: Acute Assessment and plan: 54-year-old woman with what sounds to be pretty definitive and certain colon cancer. Sounds like a surgical resection is warranted but that she has not otherwise decided to pursue or follow-up with that being offered to her. She is hemodynamically stable. Her hemoglobin is grossly stable. She is not actively bleeding and has an explanation for why she would be bleeding chronically. I am not convinced that she is undergoing alcohol withdrawal at this time. She is certainly high–risk for developing alcohol withdrawal but my clinical assessment of her is that is not the case and it is probably too soon for her to start withdrawing. She was actively drinking less than 24 hours ago which makes it extremely unlikely, though not impossible, to be withdrawing. If anything she was probably still intoxicated at the time of initial assessment rather than withdrawing. I do not see any reason to reinvent the wheel in her particular case. She is not bleeding says that she needs an emergency resection. She has answers to why she would be having melanotic stools. She does not need another upper endoscopy or colonoscopy. She should be discharged to her home (which happens to be in [place] with her daughter) and then follow-up with her surgeon who has already worked up her colon cancer and has offered her surgery. She is certainly free to make her own choices and if she does not follow-up and have care, that is her own decision to make. I think she can be fed, she can be discharged and surgery is signing off History of Present Illness Narrative: [place] is a 54-year-old woman who was reportedly hospitalized for alcohol withdrawal. She drinks excessively. She was admitted yesterday evening. Reportedly was drinking still as of yesterday morning and the night before. Her blood alcohol level in the emergency department about 12 hours ago was still elevated. She reportedly has some melanotic stools. She reportedly has colon cancer. At the bedside she reports she has been having melanotic stools for more than a year. She had this worked up in [place] 10 months ago. She lives in [place]. It is unclear why she is up in this area in an RV with some other family members who have since left her stranded. She says that they are on their way back from [place] to [place] but is unclear how they ended up in [place] on their way back to [place] and she does not have a good explanation for why they are in [place]. She says the surgeon who did her colonoscopy, which was done because of melanotic stools, told her that she has a colon cancer that needs to have surgery. She then did not follow-up and she does not have a good explanation for why she did not follow-up. She says she was afraid and decided to come on this road trip instead. Surgery was offered to her. Today at the bedside, she knows what year it is and she knows what month it is. She does not really have any complaints. I asked her what her game plan is going forward. She says she does not even have any clothing let alone a place to stay here because they left me behind. However, she is hoping get back to her daughter's place in [place]. I asked her if she has plans to go see her surgeon again in [place] and she says she is not sure if she wants to or not. As part of her melanotic stools workup in [place], she also had an endoscopy. She does not recall that they found anything other than the colon cancer. PFSH All Active Problems (Updated 05/18/25 @ 06:42 by Jeffry Adams) Chronic alcoholism (Chronic) Colon cancer (Acute) Melena (Acute) Alcohol withdrawal (Acute) Social History Smoking/Tobacco Use Status: Current every day Tobacco Type: cigarettes Smoking risk assessment performed?: Yes Drug use: Never Substance use type: does not use Housing: homeless Exam Narrative Exam Narrative: Gen: Non-toxic, comfortable and interactive. Reasonably well–nourished. Neuro: Alert and oriented x3. No obvious tremors. Psych: Reasonable mood and affect. Seemingly good insight and understanding into condition, but her decision–making and reasoning seems relatively poor. Chest: Non-labored breathing, no wheezing, no visible shortness of breath. Heart: Regular Abdomen: Soft and nontender Results Last Vital Signs Temp 97.7 F 05/18/25 02:30 Pulse 84 05/18/25 07:02 Resp 19 05/18/25 07:02 BP 138/84 05/18/25 07:01 Pulse Ox 97 05/18/25 07:02 Labs 05/18/25 05:30 05/18/25 05:30 Labs: Laboratory Results - last 24 hr 05/17/25 05/17/25 05/17/25 19:04 19:22 19:22 WBC 2.48 L RBC 3.82 L Hgb 11.5 Hct 34.2 L MCV 90 MCH 30.1 MCHC 33.6 RDW 14.1 Plt Count 137 MPV 8.9 Immature Gran % 0.4 Neutrophils % 55.2 Lymphocytes % 33.5 Monocytes % 8.9 Eosinophils % 1.2 Basophils % 0.8 Nucleated RBC % 0.0 Absolute Neutrophils 1.37 Absolute Lymphocytes 0.83 L Absolute Monocytes 0.22 Absolute Eosinophils 0.03 Absolute Basophils 0.02 PT INR VBG Lactate 1.1 Sodium 143 Cancelled Potassium 4.2 Chloride Carbon Dioxide Anion Gap BUN Creatinine Est GFR (CKD-EPI 2020) Glucose Calcium Phosphorus Magnesium Total Bilirubin Conjugated Bilirubin AST ALT Alkaline Phosphatase Ammonia Troponin I Total Protein Albumin Lipase TSH Urine Color Yellow Urine Clarity Clear Urine pH 5.5 Ur Specific [place] 1.025 Urine Protein Negative Urine Ketones Negative Urine Blood Negative Urine Nitrite Negative Urine Bilirubin Negative Urine Urobilinogen 0.2 Ur Leukocyte Esterase Small H Urine RBC 0-2 Urine WBC 3-5 Ur Epithelial Cells Rare Urine Crystals Negative Urine Bacteria Negative Urine Mucus Trace Ur Culture Indicated? No Urine Glucose Negative Urine Opiates Screen Negative Urine Methadone Screen Negative Ur Barbiturates Screen Negative Ur Tricyclics Screen Negative Ur Amphetamines Screen Negative U Benzodiazepines Scrn Negative Urine Cocaine Screen Negative Ur THC Screen Negative Ethyl Alcohol COVID-19 Source SARS-CoV-2 (PCR) Hepatitis C Antibody Influenza Type A (PCR) Influenza Type B (PCR) RSV (PCR) 05/17/25 05/17/25 05/17/25 19:22 19:22 19:22 WBC RBC Hgb Hct MCV MCH MCHC RDW Plt Count MPV Immature Gran % Neutrophils % Lymphocytes % Monocytes % Eosinophils % Basophils % Nucleated RBC % Absolute Neutrophils Absolute Lymphocytes Absolute Monocytes Absolute Eosinophils Absolute Basophils PT INR VBG Lactate Sodium Potassium Cancelled Chloride 106 Cancelled Carbon Dioxide 26.9 Cancelled Anion Gap 10.1 BUN Creatinine Est GFR (CKD-EPI 2020) Glucose Calcium Phosphorus Magnesium Total Bilirubin Conjugated Bilirubin AST ALT Alkaline Phosphatase Ammonia Troponin I Total Protein Albumin Lipase TSH Urine Color Urine Clarity Urine pH Ur Specific [place] Urine Protein Urine Ketones Urine Blood Urine Nitrite Urine Bilirubin Urine Urobilinogen Ur Leukocyte Esterase Urine RBC Urine WBC Ur Epithelial Cells Urine Crystals Urine Bacteria Urine Mucus Ur Culture Indicated? Urine Glucose Urine Opiates Screen Urine Methadone Screen Ur Barbiturates Screen Ur Tricyclics Screen Ur Amphetamines Screen U Benzodiazepines Scrn Urine Cocaine Screen Ur THC Screen Ethyl Alcohol COVID-19 Source SARS-CoV-2 (PCR) Hepatitis C Antibody Influenza Type A (PCR) Influenza Type B (PCR) RSV (PCR) 05/17/25 05/17/25 05/17/25 19:22 19:22 19:22 WBC RBC Hgb Hct MCV MCH MCHC RDW Plt Count MPV Immature Gran % Neutrophils % Lymphocytes % Monocytes % Eosinophils % Basophils % Nucleated RBC % Absolute Neutrophils Absolute Lymphocytes Absolute Monocytes Absolute Eosinophils Absolute Basophils PT INR VBG Lactate Sodium Potassium Chloride Carbon Dioxide Anion Gap Cancelled BUN 9 Cancelled Creatinine 0.6 Cancelled Est GFR (CKD-EPI 2020) 105.94 Glucose Calcium Phosphorus Magnesium Total Bilirubin Conjugated Bilirubin AST ALT Alkaline Phosphatase Ammonia Troponin I Total Protein Albumin Lipase TSH Urine Color Urine Clarity Urine pH Ur Specific [place] Urine Protein Urine Ketones Urine Blood Urine Nitrite Urine Bilirubin Urine Urobilinogen Ur Leukocyte Esterase Urine RBC Urine WBC Ur Epithelial Cells Urine Crystals Urine Bacteria Urine Mucus Ur Culture Indicated? Urine Glucose Urine Opiates Screen Urine Methadone Screen Ur Barbiturates Screen Ur Tricyclics Screen Ur Amphetamines Screen U Benzodiazepines Scrn Urine Cocaine Screen Ur THC Screen Ethyl Alcohol COVID-19 Source SARS-CoV-2 (PCR) Hepatitis C Antibody Influenza Type A (PCR) Influenza Type B (PCR) RSV (PCR) 05/17/25 05/17/25 05/17/25 19:22 19:22 19:22 WBC RBC Hgb Hct MCV MCH MCHC RDW Plt Count MPV Immature Gran % Neutrophils % Lymphocytes % Monocytes % Eosinophils % Basophils % Nucleated RBC % Absolute Neutrophils Absolute Lymphocytes Absolute Monocytes Absolute Eosinophils Absolute Basophils PT INR VBG Lactate Sodium Potassium Chloride Carbon Dioxide Anion Gap BUN Creatinine Est GFR (CKD-EPI 2020) Cancelled Glucose 89 Cancelled Calcium 8.2 L Cancelled Phosphorus Magnesium 2.1 Total Bilirubin 0.3 Conjugated Bilirubin AST ALT Alkaline Phosphatase Ammonia Troponin I Total Protein Albumin Lipase TSH Urine Color Urine Clarity Urine pH Ur Specific [place] Urine Protein Urine Ketones Urine Blood Urine Nitrite Urine Bilirubin Urine Urobilinogen Ur Leukocyte Esterase Urine RBC Urine WBC Ur Epithelial Cells Urine Crystals Urine Bacteria Urine Mucus Ur Culture Indicated? Urine Glucose Urine Opiates Screen Urine Methadone Screen Ur Barbiturates Screen Ur Tricyclics Screen Ur Amphetamines Screen U Benzodiazepines Scrn Urine Cocaine Screen Ur THC Screen Ethyl Alcohol COVID-19 Source SARS-CoV-2 (PCR) Hepatitis C Antibody Influenza Type A (PCR) Influenza Type B (PCR) RSV (PCR) 05/17/25 05/17/25 05/17/25 19:22 19:22 19:22 WBC RBC Hgb Hct MCV MCH MCHC RDW Plt Count MPV Immature Gran % Neutrophils % Lymphocytes % Monocytes % Eosinophils % Basophils % Nucleated RBC % Absolute Neutrophils Absolute Lymphocytes Absolute Monocytes Absolute Eosinophils Absolute Basophils PT INR VBG Lactate Sodium Potassium Chloride Carbon Dioxide Anion Gap BUN Creatinine Est GFR (CKD-EPI 2020) Glucose Calcium Phosphorus Magnesium Total Bilirubin Cancelled Conjugated Bilirubin 0.1 AST 51 H Cancelled ALT 56 Cancelled Alkaline Phosphatase 114 Ammonia Troponin I Total Protein Albumin Lipase TSH Urine Color Urine Clarity Urine pH Ur Specific [place] Urine Protein Urine Ketones Urine Blood Urine Nitrite Urine Bilirubin Urine Urobilinogen Ur Leukocyte Esterase Urine RBC Urine WBC Ur Epithelial Cells Urine Crystals Urine Bacteria Urine Mucus Ur Culture Indicated? Urine Glucose Urine Opiates Screen Urine Methadone Screen Ur Barbiturates Screen Ur Tricyclics Screen Ur Amphetamines Screen U Benzodiazepines Scrn Urine Cocaine Screen Ur THC Screen Ethyl Alcohol COVID-19 Source SARS-CoV-2 (PCR) Hepatitis C Antibody Influenza Type A (PCR) Influenza Type B (PCR) RSV (PCR) 05/17/25 05/17/25 05/17/25 19:22 19:22 19:22 WBC RBC Hgb Hct MCV MCH MCHC RDW Plt Count MPV Immature Gran % Neutrophils % Lymphocytes % Monocytes % Eosinophils % Basophils % Nucleated RBC % Absolute Neutrophils Absolute Lymphocytes Absolute Monocytes Absolute Eosinophils Absolute Basophils PT INR VBG Lactate Sodium Potassium Chloride Carbon Dioxide Anion Gap BUN Creatinine Est GFR (CKD-EPI 2020) Glucose Calcium Phosphorus Magnesium Total Bilirubin Conjugated Bilirubin AST ALT Alkaline Phosphatase Cancelled Ammonia 12 Troponin I 6 Cancelled Total Protein 6.7 Cancelled Albumin 2.9 L Lipase TSH Urine Color Urine Clarity Urine pH Ur Specific [place] Urine Protein Urine Ketones Urine Blood Urine Nitrite Urine Bilirubin Urine Urobilinogen Ur Leukocyte Esterase Urine RBC Urine WBC Ur Epithelial Cells Urine Crystals Urine Bacteria Urine Mucus Ur Culture Indicated? Urine Glucose Urine Opiates Screen Urine Methadone Screen Ur Barbiturates Screen Ur Tricyclics Screen Ur Amphetamines Screen U Benzodiazepines Scrn Urine Cocaine Screen Ur THC Screen Ethyl Alcohol COVID-19 Source SARS-CoV-2 (PCR) Hepatitis C Antibody Influenza Type A (PCR) Influenza Type B (PCR) RSV (PCR) 05/17/25 05/17/25 05/17/25 19:22 20:25 22:44 WBC RBC Hgb Hct MCV MCH MCHC RDW Plt Count MPV Immature Gran % Neutrophils % Lymphocytes % Monocytes % Eosinophils % Basophils % Nucleated RBC % Absolute Neutrophils Absolute Lymphocytes Absolute Monocytes Absolute Eosinophils Absolute Basophils PT INR VBG Lactate Sodium Potassium Chloride Carbon Dioxide Anion Gap BUN Creatinine Est GFR (CKD-EPI 2020) Glucose Calcium Phosphorus Magnesium Total Bilirubin Conjugated Bilirubin AST ALT Alkaline Phosphatase Ammonia Troponin I 7 Total Protein Albumin Cancelled Lipase 63 TSH 0.99 Urine Color Urine Clarity Urine pH Ur Specific [place] Urine Protein Urine Ketones Urine Blood Urine Nitrite Urine Bilirubin Urine Urobilinogen Ur Leukocyte Esterase Urine RBC Urine WBC Ur Epithelial Cells Urine Crystals Urine Bacteria Urine Mucus Ur Culture Indicated? Urine Glucose Urine Opiates Screen Urine Methadone Screen Ur Barbiturates Screen Ur Tricyclics Screen Ur Amphetamines Screen U Benzodiazepines Scrn Urine Cocaine Screen Ur THC Screen Ethyl Alcohol 10.1 H COVID-19 Source Nasopharynx SARS-CoV-2 (PCR) Negative Hepatitis C Antibody Influenza Type A (PCR) Negative Influenza Type B (PCR) Negative RSV (PCR) Negative 05/17/25 05/18/25 05/18/25 23:33 05:30 05:35 WBC 2.35 L 1.82 L* Cancelled RBC 3.60 L 3.49 L Cancelled Hgb 10.9 L 10.6 L Cancelled Hct 32.7 L 32.0 L Cancelled MCV 91 92 Cancelled MCH 30.3 30.4 Cancelled MCHC 33.3 33.1 Cancelled RDW 14.3 14.4 Cancelled Plt Count 126 L 117 L Cancelled MPV 9.2 9.1 Cancelled Immature Gran % Neutrophils % Lymphocytes % Monocytes % Eosinophils % Basophils % Nucleated RBC % Absolute Neutrophils Absolute Lymphocytes Absolute Monocytes Absolute Eosinophils Absolute Basophils PT 10.2 INR 1.0 VBG Lactate Sodium 140 Potassium 4.1 Chloride 106 Carbon Dioxide 27.3 Anion Gap 6.7 BUN 9 Creatinine 0.7 Est GFR (CKD-EPI 2020) 102.07 Glucose 93 Calcium 8.1 L Phosphorus 3.9 Magnesium 2.3 Total Bilirubin 1.0 Conjugated Bilirubin AST 44 H ALT 42 Alkaline Phosphatase 102 Ammonia Troponin I Total Protein 5.7 L Albumin 2.5 L Lipase TSH Urine Color Urine Clarity Urine pH Ur Specific [place] Urine Protein Urine Ketones Urine Blood Urine Nitrite Urine Bilirubin Urine Urobilinogen Ur Leukocyte Esterase Urine RBC Urine WBC Ur Epithelial Cells Urine Crystals Urine Bacteria Urine Mucus Ur Culture Indicated? Urine Glucose Urine Opiates Screen Urine Methadone Screen Ur Barbiturates Screen Ur Tricyclics Screen Ur Amphetamines Screen U Benzodiazepines Scrn Urine Cocaine Screen Ur THC Screen Ethyl Alcohol COVID-19 Source SARS-CoV-2 (PCR) Hepatitis C Antibody Influenza Type A (PCR) Influenza Type B (PCR) RSV (PCR) 05/18/25 Unknown WBC RBC Hgb Hct MCV MCH MCHC RDW Plt Count MPV Immature Gran % Neutrophils % Lymphocytes % Monocytes % Eosinophils % Basophils % Nucleated RBC % Absolute Neutrophils Absolute Lymphocytes Absolute Monocytes Absolute Eosinophils Absolute Basophils PT INR VBG Lactate Sodium Potassium Chloride Carbon Dioxide Anion Gap BUN Creatinine Est GFR (CKD-EPI 2020) Glucose Calcium Phosphorus Magnesium Total Bilirubin Conjugated Bilirubin AST ALT Alkaline Phosphatase Ammonia Troponin I Total Protein Albumin Lipase TSH Urine Color Urine Clarity Urine pH Ur Specific [place] Urine Protein Urine Ketones Urine Blood Urine Nitrite Urine Bilirubin Urine Urobilinogen Ur Leukocyte Esterase Urine RBC Urine WBC Ur Epithelial Cells Urine Crystals Urine Bacteria Urine Mucus Ur Culture Indicated? Urine Glucose Urine Opiates Screen Urine Methadone Screen Ur Barbiturates Screen Ur Tricyclics Screen Ur Amphetamines Screen U Benzodiazepines Scrn Urine Cocaine Screen Ur THC Screen Ethyl Alcohol COVID-19 Source SARS-CoV-2 (PCR) Hepatitis C Antibody Cancelled Influenza Type A (PCR) Influenza Type B (PCR) RSV (PCR)
[2025-05-18 11:42] LABS: HCT 32.4 % (36.0-46.0); HGB 10.8 g/dL (11.2-15.7); MCH 30.4 pg (27.0-33.0); MCHC 33.3 % (32.0-36.0); MCV 91 fL (80-95); MPV 9.3 fL (8.0-11.0); Platelet Count 112 10^3/uL (130-400); RBC 3.55 10^6/uL (3.93-5.22); RDW 13.9 % (11.7-14.6); RDW-SD 47.0 fL
[2025-05-18 11:54] LABS: WBC 1.74 10^3/uL (4.4-10.8)
--- NOTE | 2025-05-18 12:07 | PGE_ITS ---
Date of Service Date of service: 05/18/25 Time of Service: 12:07 Assessment and Plan Assessment and plan (1) Alcohol withdrawal: Start date: 05/17/25 Status: Acute Assessment and plan: h/o heavy alchohol use, on withdrawal protocol s/p loading of phenobarbital with moderate CIWAs 6-11. Getting some visual hallucination that can be seen in withdrawal. (2) Melena: Start date: 05/17/25 Status: Acute Assessment and plan: Reports melena but david colored stool this morning. H/h pretty stable. Appreciate input from Dr. Ocasio Start PPI as she is having epigastric pain and is at risk for PUD and marginal ulcer from h/o bypass I don't think she needs q6 CBC but repeat h/h in pm to assure stablity okay to eat as no endoscopy planned. (3) Colon cancer: Status: Acute Assessment and plan: Diagnosed in [place]. Appreciate surgical input, plan to f/u back there. (4) Chronic alcoholism: Status: Chronic Assessment and plan: Will encourage engagment with treatment once medically stable. Denies other drug use but h/o HCV suggests IVDU history She is transient in this area, but case management is engaged. (5) Pancytopenia: Status: Acute Assessment and plan: Likely alcoholic based on what we know, but also at risk for poor nutrition, infections. Get B12, HIV, hep B follow Subjective Subjective Patient reports: tolerating liquids well and voiding w/o difficulty; denies nausea, vomiting, shortness of breath or fever Interval history since last seen: Given morphine 4mg for epigastric pain overnight David colored BM this morning, no blood/melena She feels fatigued and run down. Her stomach still hurts, but she is hungry, she wants to try solid food. Exam Narrative Exam Narrative: GEN: alert and oriented, NAD Lungs: CTAB, normal effort CV: RRR, no m/g abd: +bs, soft, mild epigastric tednerness. no mass. ext: no cyanosis, clubbing, or edema. neuro/psych: +hallucinations seeing cat in bed. No tremors. Normal speech. no focal weakness, CN grossly intact. Objective Last Vital Signs Temp 36.5 C 05/18/25 02:30 Pulse 84 05/18/25 07:02 Resp 19 05/18/25 07:02 BP 138/84 05/18/25 07:01 Pulse Ox 97 05/18/25 07:02 Laboratory Results - last 24 hr 05/17/25 05/17/25 05/17/25 19:04 19:22 19:22 WBC 2.48 L RBC 3.82 L Hgb 11.5 Hct 34.2 L MCV 90 MCH 30.1 MCHC 33.6 RDW 14.1 Plt Count 137 MPV 8.9 Immature Gran % 0.4 Neutrophils % 55.2 Lymphocytes % 33.5 Monocytes % 8.9 Eosinophils % 1.2 Basophils % 0.8 Nucleated RBC % 0.0 Absolute Neutrophils 1.37 Absolute Lymphocytes 0.83 L Absolute Monocytes 0.22 Absolute Eosinophils 0.03 Absolute Basophils 0.02 PT INR VBG Lactate 1.1 Sodium 143 Cancelled Potassium 4.2 Chloride Carbon Dioxide Anion Gap BUN Creatinine Est GFR (CKD-EPI 2020) Glucose Calcium Phosphorus Magnesium Total Bilirubin Conjugated Bilirubin AST ALT Alkaline Phosphatase Ammonia Troponin I Total Protein Albumin Lipase TSH Urine Color Yellow Urine Clarity Clear Urine pH 5.5 Ur Specific [place] 1.025 Urine Protein Negative Urine Ketones Negative Urine Blood Negative Urine Nitrite Negative Urine Bilirubin Negative Urine Urobilinogen 0.2 Ur Leukocyte Esterase Small H Urine RBC 0-2 Urine WBC 3-5 Ur Epithelial Cells Rare Urine Crystals Negative Urine Bacteria Negative Urine Mucus Trace Ur Culture Indicated? No Urine Glucose Negative Urine Opiates Screen Negative Urine Methadone Screen Negative Ur Barbiturates Screen Negative Ur Tricyclics Screen Negative Ur Amphetamines Screen Negative U Benzodiazepines Scrn Negative Urine Cocaine Screen Negative Ur THC Screen Negative Ethyl Alcohol COVID-19 Source SARS-CoV-2 (PCR) Hepatitis C Antibody Influenza Type A (PCR) Influenza Type B (PCR) RSV (PCR) 05/17/25 05/17/25 05/17/25 19:22 19:22 19:22 WBC RBC Hgb Hct MCV MCH MCHC RDW Plt Count MPV Immature Gran % Neutrophils % Lymphocytes % Monocytes % Eosinophils % Basophils % Nucleated RBC % Absolute Neutrophils Absolute Lymphocytes Absolute Monocytes Absolute Eosinophils Absolute Basophils PT INR VBG Lactate Sodium Potassium Cancelled Chloride 106 Cancelled Carbon Dioxide 26.9 Cancelled Anion Gap 10.1 BUN Creatinine Est GFR (CKD-EPI 2020) Glucose Calcium Phosphorus Magnesium Total Bilirubin Conjugated Bilirubin AST ALT Alkaline Phosphatase Ammonia Troponin I Total Protein Albumin Lipase TSH Urine Color Urine Clarity Urine pH Ur Specific [place] Urine Protein Urine Ketones Urine Blood Urine Nitrite Urine Bilirubin Urine Urobilinogen Ur Leukocyte Esterase Urine RBC Urine WBC Ur Epithelial Cells Urine Crystals Urine Bacteria Urine Mucus Ur Culture Indicated? Urine Glucose Urine Opiates Screen Urine Methadone Screen Ur Barbiturates Screen Ur Tricyclics Screen Ur Amphetamines Screen U Benzodiazepines Scrn Urine Cocaine Screen Ur THC Screen Ethyl Alcohol COVID-19 Source SARS-CoV-2 (PCR) Hepatitis C Antibody Influenza Type A (PCR) Influenza Type B (PCR) RSV (PCR) 05/17/25 05/17/25 05/17/25 19:22 19:22 19:22 WBC RBC Hgb Hct MCV MCH MCHC RDW Plt Count MPV Immature Gran % Neutrophils % Lymphocytes % Monocytes % Eosinophils % Basophils % Nucleated RBC % Absolute Neutrophils Absolute Lymphocytes Absolute Monocytes Absolute Eosinophils Absolute Basophils PT INR VBG Lactate Sodium Potassium Chloride Carbon Dioxide Anion Gap Cancelled BUN 9 Cancelled Creatinine 0.6 Cancelled Est GFR (CKD-EPI 2020) 105.94 Glucose Calcium Phosphorus Magnesium Total Bilirubin Conjugated Bilirubin AST ALT Alkaline Phosphatase Ammonia Troponin I Total Protein Albumin Lipase TSH Urine Color Urine Clarity Urine pH Ur Specific [place] Urine Protein Urine Ketones Urine Blood Urine Nitrite Urine Bilirubin Urine Urobilinogen Ur Leukocyte Esterase Urine RBC Urine WBC Ur Epithelial Cells Urine Crystals Urine Bacteria Urine Mucus Ur Culture Indicated? Urine Glucose Urine Opiates Screen Urine Methadone Screen Ur Barbiturates Screen Ur Tricyclics Screen Ur Amphetamines Screen U Benzodiazepines Scrn Urine Cocaine Screen Ur THC Screen Ethyl Alcohol COVID-19 Source SARS-CoV-2 (PCR) Hepatitis C Antibody Influenza Type A (PCR) Influenza Type B (PCR) RSV (PCR) 05/17/25 05/17/25 05/17/25 19:22 19:22 19:22 WBC RBC Hgb Hct MCV MCH MCHC RDW Plt Count MPV Immature Gran % Neutrophils % Lymphocytes % Monocytes % Eosinophils % Basophils % Nucleated RBC % Absolute Neutrophils Absolute Lymphocytes Absolute Monocytes Absolute Eosinophils Absolute Basophils PT INR VBG Lactate Sodium Potassium Chloride Carbon Dioxide Anion Gap BUN Creatinine Est GFR (CKD-EPI 2020) Cancelled Glucose 89 Cancelled Calcium 8.2 L Cancelled Phosphorus Magnesium 2.1 Total Bilirubin 0.3 Conjugated Bilirubin AST ALT Alkaline Phosphatase Ammonia Troponin I Total Protein Albumin Lipase TSH Urine Color Urine Clarity Urine pH Ur Specific [place] Urine Protein Urine Ketones Urine Blood Urine Nitrite Urine Bilirubin Urine Urobilinogen Ur Leukocyte Esterase Urine RBC Urine WBC Ur Epithelial Cells Urine Crystals Urine Bacteria Urine Mucus Ur Culture Indicated? Urine Glucose Urine Opiates Screen Urine Methadone Screen Ur Barbiturates Screen Ur Tricyclics Screen Ur Amphetamines Screen U Benzodiazepines Scrn Urine Cocaine Screen Ur THC Screen Ethyl Alcohol COVID-19 Source SARS-CoV-2 (PCR) Hepatitis C Antibody Influenza Type A (PCR) Influenza Type B (PCR) RSV (PCR) 05/17/25 05/17/25 05/17/25 19:22 19:22 19:22 WBC RBC Hgb Hct MCV MCH MCHC RDW Plt Count MPV Immature Gran % Neutrophils % Lymphocytes % Monocytes % Eosinophils % Basophils % Nucleated RBC % Absolute Neutrophils Absolute Lymphocytes Absolute Monocytes Absolute Eosinophils Absolute Basophils PT INR VBG Lactate Sodium Potassium Chloride Carbon Dioxide Anion Gap BUN Creatinine Est GFR (CKD-EPI 2020) Glucose Calcium Phosphorus Magnesium Total Bilirubin Cancelled Conjugated Bilirubin 0.1 AST 51 H Cancelled ALT 56 Cancelled Alkaline Phosphatase 114 Ammonia Troponin I Total Protein Albumin Lipase TSH Urine Color Urine Clarity Urine pH Ur Specific [place] Urine Protein Urine Ketones Urine Blood Urine Nitrite Urine Bilirubin Urine Urobilinogen Ur Leukocyte Esterase Urine RBC Urine WBC Ur Epithelial Cells Urine Crystals Urine Bacteria Urine Mucus Ur Culture Indicated? Urine Glucose Urine Opiates Screen Urine Methadone Screen Ur Barbiturates Screen Ur Tricyclics Screen Ur Amphetamines Screen U Benzodiazepines Scrn Urine Cocaine Screen Ur THC Screen Ethyl Alcohol COVID-19 Source SARS-CoV-2 (PCR) Hepatitis C Antibody Influenza Type A (PCR) Influenza Type B (PCR) RSV (PCR) 05/17/25 05/17/25 05/17/25 19:22 19:22 19:22 WBC RBC Hgb Hct MCV MCH MCHC RDW Plt Count MPV Immature Gran % Neutrophils % Lymphocytes % Monocytes % Eosinophils % Basophils % Nucleated RBC % Absolute Neutrophils Absolute Lymphocytes Absolute Monocytes Absolute Eosinophils Absolute Basophils PT INR VBG Lactate Sodium Potassium Chloride Carbon Dioxide Anion Gap BUN Creatinine Est GFR (CKD-EPI 2020) Glucose Calcium Phosphorus Magnesium Total Bilirubin Conjugated Bilirubin AST ALT Alkaline Phosphatase Cancelled Ammonia 12 Troponin I 6 Cancelled Total Protein 6.7 Cancelled Albumin 2.9 L Lipase TSH Urine Color Urine Clarity Urine pH Ur Specific [place] Urine Protein Urine Ketones Urine Blood Urine Nitrite Urine Bilirubin Urine Urobilinogen Ur Leukocyte Esterase Urine RBC Urine WBC Ur Epithelial Cells Urine Crystals Urine Bacteria Urine Mucus Ur Culture Indicated? Urine Glucose Urine Opiates Screen Urine Methadone Screen Ur Barbiturates Screen Ur Tricyclics Screen Ur Amphetamines Screen U Benzodiazepines Scrn Urine Cocaine Screen Ur THC Screen Ethyl Alcohol COVID-19 Source SARS-CoV-2 (PCR) Hepatitis C Antibody Influenza Type A (PCR) Influenza Type B (PCR) RSV (PCR) 05/17/25 05/17/25 05/17/25 19:22 20:25 22:44 WBC RBC Hgb Hct MCV MCH MCHC RDW Plt Count MPV Immature Gran % Neutrophils % Lymphocytes % Monocytes % Eosinophils % Basophils % Nucleated RBC % Absolute Neutrophils Absolute Lymphocytes Absolute Monocytes Absolute Eosinophils Absolute Basophils PT INR VBG Lactate Sodium Potassium Chloride Carbon Dioxide Anion Gap BUN Creatinine Est GFR (CKD-EPI 2020) Glucose Calcium Phosphorus Magnesium Total Bilirubin Conjugated Bilirubin AST ALT Alkaline Phosphatase Ammonia Troponin I 7 Total Protein Albumin Cancelled Lipase 63 TSH 0.99 Urine Color Urine Clarity Urine pH Ur Specific [place] Urine Protein Urine Ketones Urine Blood Urine Nitrite Urine Bilirubin Urine Urobilinogen Ur Leukocyte Esterase Urine RBC Urine WBC Ur Epithelial Cells Urine Crystals Urine Bacteria Urine Mucus Ur Culture Indicated? Urine Glucose Urine Opiates Screen Urine Methadone Screen Ur Barbiturates Screen Ur Tricyclics Screen Ur Amphetamines Screen U Benzodiazepines Scrn Urine Cocaine Screen Ur THC Screen Ethyl Alcohol 10.1 H COVID-19 Source Nasopharynx SARS-CoV-2 (PCR) Negative Hepatitis C Antibody Influenza Type A (PCR) Negative Influenza Type B (PCR) Negative RSV (PCR) Negative 05/17/25 05/18/25 05/18/25 23:33 05:30 05:35 WBC 2.35 L 1.82 L* Cancelled RBC 3.60 L 3.49 L Cancelled Hgb 10.9 L 10.6 L Cancelled Hct 32.7 L 32.0 L Cancelled MCV 91 92 Cancelled MCH 30.3 30.4 Cancelled MCHC 33.3 33.1 Cancelled RDW 14.3 14.4 Cancelled Plt Count 126 L 117 L Cancelled MPV 9.2 9.1 Cancelled Immature Gran % Neutrophils % Lymphocytes % Monocytes % Eosinophils % Basophils % Nucleated RBC % Absolute Neutrophils Absolute Lymphocytes Absolute Monocytes Absolute Eosinophils Absolute Basophils PT 10.2 INR 1.0 VBG Lactate Sodium 140 Potassium 4.1 Chloride 106 Carbon Dioxide 27.3 Anion Gap 6.7 BUN 9 Creatinine 0.7 Est GFR (CKD-EPI 2020) 102.07 Glucose 93 Calcium 8.1 L Phosphorus 3.9 Magnesium 2.3 Total Bilirubin 1.0 Conjugated Bilirubin AST 44 H ALT 42 Alkaline Phosphatase 102 Ammonia Troponin I Total Protein 5.7 L Albumin 2.5 L Lipase TSH Urine Color Urine Clarity Urine pH Ur Specific [place] Urine Protein Urine Ketones Urine Blood Urine Nitrite Urine Bilirubin Urine Urobilinogen Ur Leukocyte Esterase Urine RBC Urine WBC Ur Epithelial Cells Urine Crystals Urine Bacteria Urine Mucus Ur Culture Indicated? Urine Glucose Urine Opiates Screen Urine Methadone Screen Ur Barbiturates Screen Ur Tricyclics Screen Ur Amphetamines Screen U Benzodiazepines Scrn Urine Cocaine Screen Ur THC Screen Ethyl Alcohol COVID-19 Source SARS-CoV-2 (PCR) Hepatitis C Antibody Influenza Type A (PCR) Influenza Type B (PCR) RSV (PCR) 05/18/25 05/18/25 11:29 Unknown WBC 1.74 L* RBC 3.55 L Hgb 10.8 L Hct 32.4 L MCV 91 MCH 30.4 MCHC 33.3 RDW 13.9 Plt Count 112 L MPV 9.3 Immature Gran % Neutrophils % Lymphocytes % Monocytes % Eosinophils % Basophils % Nucleated RBC % Absolute Neutrophils Absolute Lymphocytes Absolute Monocytes Absolute Eosinophils Absolute Basophils PT INR VBG Lactate Sodium Potassium Chloride Carbon Dioxide Anion Gap BUN Creatinine Est GFR (CKD-EPI 2020) Glucose Calcium Phosphorus Magnesium Total Bilirubin Conjugated Bilirubin AST ALT Alkaline Phosphatase Ammonia Troponin I Total Protein Albumin Lipase TSH Urine Color Urine Clarity Urine pH Ur Specific [place] Urine Protein Urine Ketones Urine Blood Urine Nitrite Urine Bilirubin Urine Urobilinogen Ur Leukocyte Esterase Urine RBC Urine WBC Ur Epithelial Cells Urine Crystals Urine Bacteria Urine Mucus Ur Culture Indicated? Urine Glucose Urine Opiates Screen Urine Methadone Screen Ur Barbiturates Screen Ur Tricyclics Screen Ur Amphetamines Screen U Benzodiazepines Scrn Urine Cocaine Screen Ur THC Screen Ethyl Alcohol COVID-19 Source SARS-CoV-2 (PCR) Hepatitis C Antibody Cancelled Influenza Type A (PCR) Influenza Type B (PCR) RSV (PCR) PAWSS Have you Been Recently Intoxicated or Drunk Within the Last 30 days?: Yes Have you Ever Experienced Previous Episodes of Alcohol Withdrawal?: Yes Have you ever Experienced Withdrawal Seizures?: Yes Have you ever Experienced Delirium Tremens(DT)s?: Yes Have you ever undergone Alcohol Rehabilitation Treatment (i.e, inpt ot outpatient treatment programs)?: Yes Have you ever Experienced Blackouts?: Yes Have you ever Combined Alcohol with other Downers within the last 90 days?: No Have you ever Combined Alcohol with any other Substance of Abuse during the last 90 days?: No Positive Blood Alcohol level on Presentation? [PCS.BAL]: Yes Evidence of Increased Autonomic Activity (i.e. HR>120, tremor, sweating, agitation, nausea)?: Yes Result: 8 Time Spent with Patient Time Spent with Patient: >50 minutes Time was spent: preparing to see the patient(eg.review tests), obtaining and/or reviewing separately otained hiistory, ordering medications,tests, procedures, referring, communicating with other health memory care director, indepentently interpreting results, counseling the patient and care coordination
[2025-05-18 12:24] LABS: Vitamin B12 421 pg/mL (193-986)
[2025-05-18] MEDS: Pantoprazole 40 MG VIAL IVP (12:36)
--- NOTE | 2025-05-18 16:19 | DSE_ITS ---
Date of service: 05/18/25 Time of Service: 16:19 DS: Diagnosis Discharge Diagnosis (1) Alcohol withdrawal: Status: Acute (2) Melena: Status: Acute (3) Colon cancer: Status: Acute (4) Chronic alcoholism: Status: Chronic (5) Pancytopenia: Status: Acute Discharge Plan Disposition Patient Disposition: Against Medical Advice Condition: Poor Discharge Details Reason For Visit: Alcohol Withdrawal, Melena Admit Date/Time: 05/17/25 22:15 Admit Provider: Jeffry Adams Attending Provider: Jeffry Adams Primary Care Provider: Unknown,Unknown Hospital Course Hospital Course: 54 yo passing through area with severe alcohol use disorder and daily drinking of ~40 drinks, colon cancer, chronic HCV, s/p gastric bypass, presented with alcohol withdrawal and melena. UDS was negative, EtOH was 10.1 in the ED. She states she was diagnosed with colon cancer when she presented in a similar way in [place], [place] 5 months prior. She was treated with phenobarbital protocol including banana back with thiamine. She had some visual hallucinations but her CIWA scores were otherwise moderate at 6-11. She had epigastric pain and was treated with morphine and pantoprazole. CTA A/P showed: 1. No evidence of abdominal aortic dissection or aneurysm. 2. No evidence of active gastrointestinal bleeding. 3. There is no acute abdominal or pelvic process She had a joie-colored BM with no blood while inpatient. Hgb was stable at 10.8. HIV and HBV and B12 were sent due to pancytopenia. On 05/18 she left AMA stating she needed to get a ride back to [place]. It was recommended she excelsior picker omeprazole OTC and follow up in [place] for colon cancer. She did not have a local pharmacy. Home Meds and New Rx's Prescriptions: No Action No Known Home Meds Discharge Instructions Stand Alone Forms: Portal Information Activity:: Activity as Tolerated Equipment/Supplies:: No Equipment Needed Diet:: As Tolerated Discharge Orders Discharge Orders: Discharge Order (Routine); Ordered 05/18/25 Ordered By: Nima Barrientos Discharge Data Discharge Date/Time-TO BE ENTERED AT DEPARTURE: 05/18/25 14:09 DS: Summary Time Spent with Patient providing and/or coordinating discharge services: Greater than 30 minutes Status at Discharge Functional status at discharge: independent ambulation Overall status at discharge: patient is not back to baseline Mental Status: mental status grossly normal Speech and Movement: speech and movement normal Mood: congruent mood Affect: normal affect Exam Narrative Exam Narrative: GEN: alert and oriented, NAD Lungs: CTAB, normal effort CV: RRR, no m/g abd: +bs, soft, mild epigastric tednerness. no mass. ext: no cyanosis, clubbing, or edema. neuro/psych: +hallucinations seeing cat in bed. No tremors. Normal speech. no focal weakness, CN grossly intact. Psych Mental Status: mental status grossly normal Speech and Movement: speech and movement normal Mood: congruent mood Affect: normal affect DS: Data Vitals/I&O Vitals and I&O: Vital Signs Temperature 37.1 C 05/18/25 13:35 Temperature Source Temporal Artery Scan 05/18/25 13:35 Pulse 64 05/18/25 13:17 Pulse 66 05/18/25 13:17 Respiratory Rate 14 05/18/25 13:17 Respiratory Effort Non-Labored 05/17/25 23:48 Respiratory Depth Normal 05/17/25 23:48 Respiratory Pattern Normal 05/17/25 23:48 Blood Pressure 134/88 05/18/25 13:17 Blood Pressure Mean 102 05/18/25 13:17 Blood Pressure Position Supine 05/17/25 23:48 Pulse Oximetry 98 05/18/25 13:17 Oxygen Delivery Method Room Air 05/17/25 23:48 Oxygen Flow Rate 0 05/17/25 23:48 Pain Level 3 05/18/25 14:30 Intake & Output 05/17/25 05/18/25 05/18/25 23:59 11:59 23:59 Intake Total 87.248 / 87.248 2728.7213 / 3028.7213 300 / 3028.7213 Output Total 950 / 1250 300 / 1250 Balance 87.248 / 87.248 1778.7213 / 1778.7213 0 / 1778.7213 Weight 61.5 kg 65.5 kg Intake: IV 87.248 / 87.248 8.7213 / 8.7213 Oral 630 / 930 300 / 930 Output: Urine 950 / 1250 300 / 1250 Other: Urine Color Yellow Yellow Urine Appearance Clear Clear Stool Size Small Stool Characteristics Formed Jaramillo Data Completed and Pending Pending Labs at Discharge: 11/09/0905/17/25 05/17/25 19:04 19:22 19:22 WBC 2.48 L RBC 3.82 L Hgb 11.5 Hct 34.2 L MCV 90 MCH 30.1 MCHC 33.6 RDW 14.1 Plt Count 137 MPV 8.9 Immature Gran % 0.4 Neutrophils % 55.2 Lymphocytes % 33.5 Monocytes % 8.9 Eosinophils % 1.2 Basophils % 0.8 Nucleated RBC % 0.0 Absolute Neutrophils 1.37 Absolute Lymphocytes 0.83 L Absolute Monocytes 0.22 Absolute Eosinophils 0.03 Absolute Basophils 0.02 PT INR VBG Lactate 1.1 Sodium 143 Cancelled Potassium 4.2 Chloride Carbon Dioxide Anion Gap BUN Creatinine Est GFR (CKD-EPI 2020) Glucose Calcium Phosphorus Magnesium Total Bilirubin Conjugated Bilirubin AST ALT Alkaline Phosphatase Ammonia Troponin I Total Protein Albumin Lipase Vitamin B12 TSH Urine Color Yellow Urine Clarity Clear Urine pH 5.5 Ur Specific [place] 1.025 Urine Protein Negative Urine Ketones Negative Urine Blood Negative Urine Nitrite Negative Urine Bilirubin Negative Urine Urobilinogen 0.2 Ur Leukocyte Esterase Small H Urine RBC 0-2 Urine WBC 3-5 Ur Epithelial Cells Rare Urine Crystals Negative Urine Bacteria Negative Urine Mucus Trace Ur Culture Indicated? No Urine Glucose Negative Urine Opiates Screen Negative Urine Methadone Screen Negative Ur Barbiturates Screen Negative Ur Tricyclics Screen Negative Ur Amphetamines Screen Negative U Benzodiazepines Scrn Negative Urine Cocaine Screen Negative Ur THC Screen Negative Ethyl Alcohol COVID-19 Source SARS-CoV-2 (PCR) Hep Bs Antigen Hep Bs Antibody Hep Bs Antibody, Quant Hep B Core Total Ab Hepatitis C Antibody HIV 1&2 Ag/Ab, 4th Gen Influenza Type A (PCR) Influenza Type B (PCR) RSV (PCR) 05/17/25 05/17/25 05/17/25 19:22 19:22 19:22 WBC RBC Hgb Hct MCV MCH MCHC RDW Plt Count MPV Immature Gran % Neutrophils % Lymphocytes % Monocytes % Eosinophils % Basophils % Nucleated RBC % Absolute Neutrophils Absolute Lymphocytes Absolute Monocytes Absolute Eosinophils Absolute Basophils PT INR VBG Lactate Sodium Potassium Cancelled Chloride 106 Cancelled Carbon Dioxide 26.9 Cancelled Anion Gap 10.1 BUN Creatinine Est GFR (CKD-EPI 2020) Glucose Calcium Phosphorus Magnesium Total Bilirubin Conjugated Bilirubin AST ALT Alkaline Phosphatase Ammonia Troponin I Total Protein Albumin Lipase Vitamin B12 TSH Urine Color Urine Clarity Urine pH Ur Specific [place] Urine Protein Urine Ketones Urine Blood Urine Nitrite Urine Bilirubin Urine Urobilinogen Ur Leukocyte Esterase Urine RBC Urine WBC Ur Epithelial Cells Urine Crystals Urine Bacteria Urine Mucus Ur Culture Indicated? Urine Glucose Urine Opiates Screen Urine Methadone Screen Ur Barbiturates Screen Ur Tricyclics Screen Ur Amphetamines Screen U Benzodiazepines Scrn Urine Cocaine Screen Ur THC Screen Ethyl Alcohol COVID-19 Source SARS-CoV-2 (PCR) Hep Bs Antigen Hep Bs Antibody Hep Bs Antibody, Quant Hep B Core Total Ab Hepatitis C Antibody HIV 1&2 Ag/Ab, 4th Gen Influenza Type A (PCR) Influenza Type B (PCR) RSV (PCR) 05/17/25 05/17/25 05/17/25 19:22 19:22 19:22 WBC RBC Hgb Hct MCV MCH MCHC RDW Plt Count MPV Immature Gran % Neutrophils % Lymphocytes % Monocytes % Eosinophils % Basophils % Nucleated RBC % Absolute Neutrophils Absolute Lymphocytes Absolute Monocytes Absolute Eosinophils Absolute Basophils PT INR VBG Lactate Sodium Potassium Chloride Carbon Dioxide Anion Gap Cancelled BUN 9 Cancelled Creatinine 0.6 Cancelled Est GFR (CKD-EPI 2020) 105.94 Glucose Calcium Phosphorus Magnesium Total Bilirubin Conjugated Bilirubin AST ALT Alkaline Phosphatase Ammonia Troponin I Total Protein Albumin Lipase Vitamin B12 TSH Urine Color Urine Clarity Urine pH Ur Specific [place] Urine Protein Urine Ketones Urine Blood Urine Nitrite Urine Bilirubin Urine Urobilinogen Ur Leukocyte Esterase Urine RBC Urine WBC Ur Epithelial Cells Urine Crystals Urine Bacteria Urine Mucus Ur Culture Indicated? Urine Glucose Urine Opiates Screen Urine Methadone Screen Ur Barbiturates Screen Ur Tricyclics Screen Ur Amphetamines Screen U Benzodiazepines Scrn Urine Cocaine Screen Ur THC Screen Ethyl Alcohol COVID-19 Source SARS-CoV-2 (PCR) Hep Bs Antigen Hep Bs Antibody Hep Bs Antibody, Quant Hep B Core Total Ab Hepatitis C Antibody HIV 1&2 Ag/Ab, 4th Gen Influenza Type A (PCR) Influenza Type B (PCR) RSV (PCR) 05/17/25 05/17/25 05/17/25 19:22 19:22 19:22 WBC RBC Hgb Hct MCV MCH MCHC RDW Plt Count MPV Immature Gran % Neutrophils % Lymphocytes % Monocytes % Eosinophils % Basophils % Nucleated RBC % Absolute Neutrophils Absolute Lymphocytes Absolute Monocytes Absolute Eosinophils Absolute Basophils PT INR VBG Lactate Sodium Potassium Chloride Carbon Dioxide Anion Gap BUN Creatinine Est GFR (CKD-EPI 2020) Cancelled Glucose 89 Cancelled Calcium 8.2 L Cancelled Phosphorus Magnesium 2.1 Total Bilirubin 0.3 Conjugated Bilirubin AST ALT Alkaline Phosphatase Ammonia Troponin I Total Protein Albumin Lipase Vitamin B12 TSH Urine Color Urine Clarity Urine pH Ur Specific [place] Urine Protein Urine Ketones Urine Blood Urine Nitrite Urine Bilirubin Urine Urobilinogen Ur Leukocyte Esterase Urine RBC Urine WBC Ur Epithelial Cells Urine Crystals Urine Bacteria Urine Mucus Ur Culture Indicated? Urine Glucose Urine Opiates Screen Urine Methadone Screen Ur Barbiturates Screen Ur Tricyclics Screen Ur Amphetamines Screen U Benzodiazepines Scrn Urine Cocaine Screen Ur THC Screen Ethyl Alcohol COVID-19 Source SARS-CoV-2 (PCR) Hep Bs Antigen Hep Bs Antibody Hep Bs Antibody, Quant Hep B Core Total Ab Hepatitis C Antibody HIV 1&2 Ag/Ab, 4th Gen Influenza Type A (PCR) Influenza Type B (PCR) RSV (PCR) 05/17/25 05/17/25 05/17/25 19:22 19:22 19:22 WBC RBC Hgb Hct MCV MCH MCHC RDW Plt Count MPV Immature Gran % Neutrophils % Lymphocytes % Monocytes % Eosinophils % Basophils % Nucleated RBC % Absolute Neutrophils Absolute Lymphocytes Absolute Monocytes Absolute Eosinophils Absolute Basophils PT INR VBG Lactate Sodium Potassium Chloride Carbon Dioxide Anion Gap BUN Creatinine Est GFR (CKD-EPI 2020) Glucose Calcium Phosphorus Magnesium Total Bilirubin Cancelled Conjugated Bilirubin 0.1 AST 51 H Cancelled ALT 56 Cancelled Alkaline Phosphatase 114 Ammonia Troponin I Total Protein Albumin Lipase Vitamin B12 TSH Urine Color Urine Clarity Urine pH Ur Specific [place] Urine Protein Urine Ketones Urine Blood Urine Nitrite Urine Bilirubin Urine Urobilinogen Ur Leukocyte Esterase Urine RBC Urine WBC Ur Epithelial Cells Urine Crystals Urine Bacteria Urine Mucus Ur Culture Indicated? Urine Glucose Urine Opiates Screen Urine Methadone Screen Ur Barbiturates Screen Ur Tricyclics Screen Ur Amphetamines Screen U Benzodiazepines Scrn Urine Cocaine Screen Ur THC Screen Ethyl Alcohol COVID-19 Source SARS-CoV-2 (PCR) Hep Bs Antigen Hep Bs Antibody Hep Bs Antibody, Quant Hep B Core Total Ab Hepatitis C Antibody HIV 1&2 Ag/Ab, 4th Gen Influenza Type A (PCR) Influenza Type B (PCR) RSV (PCR) 05/17/25 05/17/25 05/17/25 19:22 19:22 19:22 WBC RBC Hgb Hct MCV MCH MCHC RDW Plt Count MPV Immature Gran % Neutrophils % Lymphocytes % Monocytes % Eosinophils % Basophils % Nucleated RBC % Absolute Neutrophils Absolute Lymphocytes Absolute Monocytes Absolute Eosinophils Absolute Basophils PT INR VBG Lactate Sodium Potassium Chloride Carbon Dioxide Anion Gap BUN Creatinine Est GFR (CKD-EPI 2020) Glucose Calcium Phosphorus Magnesium Total Bilirubin Conjugated Bilirubin AST ALT Alkaline Phosphatase Cancelled Ammonia 12 Troponin I 6 Cancelled Total Protein 6.7 Cancelled Albumin 2.9 L Lipase Vitamin B12 TSH Urine Color Urine Clarity Urine pH Ur Specific [place] Urine Protein Urine Ketones Urine Blood Urine Nitrite Urine Bilirubin Urine Urobilinogen Ur Leukocyte Esterase Urine RBC Urine WBC Ur Epithelial Cells Urine Crystals Urine Bacteria Urine Mucus Ur Culture Indicated? Urine Glucose Urine Opiates Screen Urine Methadone Screen Ur Barbiturates Screen Ur Tricyclics Screen Ur Amphetamines Screen U Benzodiazepines Scrn Urine Cocaine Screen Ur THC Screen Ethyl Alcohol COVID-19 Source SARS-CoV-2 (PCR) Hep Bs Antigen Hep Bs Antibody Hep Bs Antibody, Quant Hep B Core Total Ab Hepatitis C Antibody HIV 1&2 Ag/Ab, 4th Gen Influenza Type A (PCR) Influenza Type B (PCR) RSV (PCR) 05/17/25 05/17/25 05/17/25 19:22 20:25 22:44 WBC RBC Hgb Hct MCV MCH MCHC RDW Plt Count MPV Immature Gran % Neutrophils % Lymphocytes % Monocytes % Eosinophils % Basophils % Nucleated RBC % Absolute Neutrophils Absolute Lymphocytes Absolute Monocytes Absolute Eosinophils Absolute Basophils PT INR VBG Lactate Sodium Potassium Chloride Carbon Dioxide Anion Gap BUN Creatinine Est GFR (CKD-EPI 2020) Glucose Calcium Phosphorus Magnesium Total Bilirubin Conjugated Bilirubin AST ALT Alkaline Phosphatase Ammonia Troponin I 7 Total Protein Albumin Cancelled Lipase 63 Vitamin B12 TSH 0.99 Urine Color Urine Clarity Urine pH Ur Specific [place] Urine Protein Urine Ketones Urine Blood Urine Nitrite Urine Bilirubin Urine Urobilinogen Ur Leukocyte Esterase Urine RBC Urine WBC Ur Epithelial Cells Urine Crystals Urine Bacteria Urine Mucus Ur Culture Indicated? Urine Glucose Urine Opiates Screen Urine Methadone Screen Ur Barbiturates Screen Ur Tricyclics Screen Ur Amphetamines Screen U Benzodiazepines Scrn Urine Cocaine Screen Ur THC Screen Ethyl Alcohol 10.1 H COVID-19 Source Nasopharynx SARS-CoV-2 (PCR) Negative Hep Bs Antigen Hep Bs Antibody Hep Bs Antibody, Quant Hep B Core Total Ab Hepatitis C Antibody HIV 1&2 Ag/Ab, 4th Gen Influenza Type A (PCR) Negative Influenza Type B (PCR) Negative RSV (PCR) Negative 05/17/25 05/18/25 05/18/25 23:33 05:30 05:35 WBC 2.35 L 1.82 L* Cancelled RBC 3.60 L 3.49 L Cancelled Hgb 10.9 L 10.6 L Cancelled Hct 32.7 L 32.0 L Cancelled MCV 91 92 Cancelled MCH 30.3 30.4 Cancelled MCHC 33.3 33.1 Cancelled RDW 14.3 14.4 Cancelled Plt Count 126 L 117 L Cancelled MPV 9.2 9.1 Cancelled Immature Gran % Neutrophils % Lymphocytes % Monocytes % Eosinophils % Basophils % Nucleated RBC % Absolute Neutrophils Absolute Lymphocytes Absolute Monocytes Absolute Eosinophils Absolute Basophils PT 10.2 INR 1.0 VBG Lactate Sodium 140 Potassium 4.1 Chloride 106 Carbon Dioxide 27.3 Anion Gap 6.7 BUN 9 Creatinine 0.7 Est GFR (CKD-EPI 2020) 102.07 Glucose 93 Calcium 8.1 L Phosphorus 3.9 Magnesium 2.3 Total Bilirubin 1.0 Conjugated Bilirubin AST 44 H ALT 42 Alkaline Phosphatase 102 Ammonia Troponin I Total Protein 5.7 L Albumin 2.5 L Lipase Vitamin B12 TSH Urine Color Urine Clarity Urine pH Ur Specific [place] Urine Protein Urine Ketones Urine Blood Urine Nitrite Urine Bilirubin Urine Urobilinogen Ur Leukocyte Esterase Urine RBC Urine WBC Ur Epithelial Cells Urine Crystals Urine Bacteria Urine Mucus Ur Culture Indicated? Urine Glucose Urine Opiates Screen Urine Methadone Screen Ur Barbiturates Screen Ur Tricyclics Screen Ur Amphetamines Screen U Benzodiazepines Scrn Urine Cocaine Screen Ur THC Screen Ethyl Alcohol COVID-19 Source SARS-CoV-2 (PCR) Hep Bs Antigen Hep Bs Antibody Hep Bs Antibody, Quant Hep B Core Total Ab Hepatitis C Antibody HIV 1&2 Ag/Ab, 4th Gen Influenza Type A (PCR) Influenza Type B (PCR) RSV (PCR) 05/18/25 05/18/25 05/18/25 11:29 14:00 17:25 WBC 1.74 L* Cancelled RBC 3.55 L Cancelled Hgb 10.8 L Cancelled Cancelled Hct 32.4 L Cancelled Cancelled MCV 91 Cancelled MCH 30.4 Cancelled MCHC 33.3 Cancelled RDW 13.9 Cancelled Plt Count 112 L Cancelled MPV 9.3 Cancelled Immature Gran % Neutrophils % Lymphocytes % Monocytes % Eosinophils % Basophils % Nucleated RBC % Absolute Neutrophils Absolute Lymphocytes Absolute Monocytes Absolute Eosinophils Absolute Basophils PT INR VBG Lactate Sodium Potassium Chloride Carbon Dioxide Anion Gap BUN Creatinine Est GFR (CKD-EPI 2020) Glucose Calcium Phosphorus Magnesium Total Bilirubin Conjugated Bilirubin AST ALT Alkaline Phosphatase Ammonia Troponin I Total Protein Albumin Lipase Vitamin B12 421 TSH Urine Color Urine Clarity Urine pH Ur Specific [place] Urine Protein Urine Ketones Urine Blood Urine Nitrite Urine Bilirubin Urine Urobilinogen Ur Leukocyte Esterase Urine RBC Urine WBC Ur Epithelial Cells Urine Crystals Urine Bacteria Urine Mucus Ur Culture Indicated? Urine Glucose Urine Opiates Screen Urine Methadone Screen Ur Barbiturates Screen Ur Tricyclics Screen Ur Amphetamines Screen U Benzodiazepines Scrn Urine Cocaine Screen Ur THC Screen Ethyl Alcohol COVID-19 Source SARS-CoV-2 (PCR) Hep Bs Antigen Pending Hep Bs Antibody Pending Hep Bs Antibody, Quant Pending Hep B Core Total Ab Pending Hepatitis C Antibody HIV 1&2 Ag/Ab, 4th Gen Pending Influenza Type A (PCR) Influenza Type B (PCR) RSV (PCR) 05/18/25 Unknown WBC RBC Hgb Hct MCV MCH MCHC RDW Plt Count MPV Immature Gran % Neutrophils % Lymphocytes % Monocytes % Eosinophils % Basophils % Nucleated RBC % Absolute Neutrophils Absolute Lymphocytes Absolute Monocytes Absolute Eosinophils Absolute Basophils PT INR VBG Lactate Sodium Potassium Chloride Carbon Dioxide Anion Gap BUN Creatinine Est GFR (CKD-EPI 2020) Glucose Calcium Phosphorus Magnesium Total Bilirubin Conjugated Bilirubin AST ALT Alkaline Phosphatase Ammonia Troponin I Total Protein Albumin Lipase Vitamin B12 TSH Urine Color Urine Clarity Urine pH Ur Specific [place] Urine Protein Urine Ketones Urine Blood Urine Nitrite Urine Bilirubin Urine Urobilinogen Ur Leukocyte Esterase Urine RBC Urine WBC Ur Epithelial Cells Urine Crystals Urine Bacteria Urine Mucus Ur Culture Indicated? Urine Glucose Urine Opiates Screen Urine Methadone Screen Ur Barbiturates Screen Ur Tricyclics Screen Ur Amphetamines Screen U Benzodiazepines Scrn Urine Cocaine Screen Ur THC Screen Ethyl Alcohol COVID-19 Source SARS-CoV-2 (PCR) Hep Bs Antigen Hep Bs Antibody Hep Bs Antibody, Quant Hep B Core Total Ab Hepatitis C Antibody Cancelled HIV 1&2 Ag/Ab, 4th Gen Influenza Type A (PCR) Influenza Type B (PCR) RSV (PCR) PFSH All Active Problems (Updated 05/18/25 @ 12:23 by Nima Barrientos) Pancytopenia (Acute) Chronic alcoholism (Chronic) Colon cancer (Acute) Melena (Acute) Alcohol withdrawal (Acute) Medical History (Updated 05/18/25 @ 12:23 by Nima Barrientos) Hepatitis C Surgical History (Updated 05/18/25 @ 12:23 by Nima Barrientos) H/O gastric bypass Social History Smoking/Tobacco Use Status: Current every day Tobacco Type: cigarettes Smoking risk assessment performed?: Yes Drug use: Never Substance use type: does not use Housing: homeless Time Spent with Patient Time Spent with Patient: 45-69 minutes Time was spent: preparing to see the patient(eg.review tests), obtaining and/or reviewing separately otained hiistory, referring, communicating with other health acute care nursing assistant, indepentently interpreting results, counseling the patient, care coordination and other
--- NOTE | 2025-05-18 16:50 | CMPROGNOTE_ITS ---
Date of service: 05/18/25 Time of Service: 16:50 Care Management Progress Note Progress Note Text Progress Note Text: ALFREDO was informed by America's RN that she was leaving [place]. She requested to talk to care management about a bus ride to [place], [place]. CM provided the bus schedule for the local [facility] bus, as well as the commuter [facility] bus to [place]. CM also printed out information [facility], which travels from [place] to [place], [place]. America was requesting to leave and did not wait for CM to meet with her, when CM was available, therefore CM did not meet with her in person. CM suggested that she go to [facility], but she informed h mechanical design engineer facilities that she did not have time, as she had to get to [place], [place]. ALFREDO will continue to follow. Social Determinants of Health Screening Will the Patient Participate in the Screening?: Declined to provide
[2025-05-19 10:40] LABS: HBs Antibody, Quant <3.1 mIU/mL (See Note); Hepatitis B Surface Antigen Negative (Negative)
[2025-05-19 11:51] LABS: HIV-1/2 Ag & Ab Screen Negative (Negative)
== END 2025-05-18 14:09 | disposition left against medical advice (07) | DRG 894 ==
LOC: ER 21:55 → ICU 23:20
PROVIDERS: Admitting Provider Family Medicine; Emergency Provider Physician Assistant; Responsible Provider Family Medicine; Visit Provider Family Medicine
DX: F10.239 Alcohol dependence with withdrawal, unspecified (principal); K92.1 Melena; C18.9 Malignant neoplasm of colon, unspecified; D61.818 Other pancytopenia; F17.210 Nicotine dependence, cigarettes, uncomplicated; Z98.84 Bariatric surgery status; Y90.0 Blood alcohol level of less than 20 mg/100 ml
CPT/HCPCS: 00123; 36415; 80048; 80053; 80076; 80307; 83690; 85027; 86704; 86706; 86803; 87340; 87389; 87637; 96365; 96366; 96375; 96376; 99285; 74174; 80320; 81003; 81015; 82140; 82607; 83605; 83735; 84100; 84443; 84484; 85014; 85018; 85025; 85610; 93005; 93010; 99223; 99239; J2060; J2270; J2405; J2470; J2560; J3411; J3475; J3490